=== PATIENT | female | born 1950 | race Caucasian/White ===

== ENCOUNTER 2024-02-24 03:34 | Observation (INO) | payer MEDICARE, SELFPAY ==
[2024-02-24] VITALS (10 sets, daily range): BP systolic 150–162; BP diastolic 56–78; PULSE 52–66; RESP 16–18; TEMP 36–36.7; O2SAT 93–96; BMI 56.8
--- NOTE | ~2024-02-24 | XR_ITS ---
Clinical Indication: Weakness, back pain PA and lateral views of the chest: Comparison: None Findings: The lungs are clear, without evidence of focal consolidation or pleural effusion. Cardiome diastinal silhouette is within normal limits. Bones and soft tissues are unremarkable. Impression: Normal chest. Reviewed, dictated and finalized at [facility]. Impression: Normal chest.
--- NOTE | ~2024-02-24 | CT_ITS ---
CT of the Abdomen and Pelvis: Indication: Abdominal pain Technique: 2.5 mm axial scans were obtained through the abdomen and pelvis following intravenous adm inistration of 100 cc of Omnipaque 350. Dose reduction technique was used on this scan by utilizing a utomated exposure control and iterative reconstruction technique. The dose-length product (DLP) was 3 673.52 mGy-cm. Findings: Scans through the lung bases are unremarkable. The liver, pancreas, and adrenal glands are within normal limits. 2.2 cm calcified gallstone present. Spleen is enlarged, measuring 16.2 cm in length. There is a 1 cm ovoid stone in the left renal pelvi s. There are additional smaller bilateral nonobstructing renal stones. No hydronephrosis. No evidence of aortic aneurysm. No lymphadenopathy. No bowel obstruction or bowel wall thickening. There is no evidence to suggest acute appendicitis. Images through the pelvis were performed. Urinary bladder unremarkable. No pelvic mass seen. No ascit es. L2 compression fracture, likely acute. Impression: L2 compression fracture, likely acute. Correlate with clinical history/symptomatology. MR could be co nsidered to further evaluate for acute marrow edema, as indicated. Cholelithiasis. Bilateral nonobstructing renal stones, likely 1 cm stone at the left renal pelvis. No hydronephrosis on either side. Splenomegaly. Reviewed, dictated and finalized at [facility]. Impression: L2 compression fracture, likely acute. Correlate with clinical history/symptoma tology. MR could be considered to further evaluate for acute marrow edema, as i ndicated. Cholelithiasis. Bilateral nonobstructing renal stones, likely 1 cm stone at the left renal pelv is. No hydronephrosis on either side. Splenomegaly.
--- NOTE | 2024-02-24 03:46 | ECG_ITS ---
Test Date: 2024-02-24 03:47:48 Measurements Intervals [place] Rate: 60 P: 58 [place]: 173 QRS: 25 QRSD: 100 T: 32 QT: 417 QTc: 419 Interpretive Statements SINUS RHYTHM BASELINE ARTIFACT WHICH LIMITS INTERPRETATION No previous ECG available for comparison Electronically Signed On 02-24-2024 17:10:12 CDT by Letty Maguire M.D.
[2024-02-24 04:18] LABS: Basophils Absolute Auto 0.1 K/mm3 (0.0-0.1); Eosinophils Absolute Auto 0.3 K/mm3 (0-0.3); Eosinophils Percent Auto 3.9 % (0-4.4); Hematocrit 41.3 % (37.0-47.0); Hemoglobin 13.1 g/dL (12.0-15.0); Immature Granulocyte Absolute 0.07 K/mm3 (0.00-0.031); Immature Granulocyte Percent A 0.9 % (0-0.5); Lymphocytes Absolute Auto 1.08 K/mm3 (0.9-3.2); Lymphocytes Percent Auto 13.7 % (18.3-44.2); Mean Corpuscular HGB Conc 31.7 g/dl (32-36); Mean Corpuscular Hemoglobin 28.2 pg (26-34); Mean Corpuscular Volume 88.8 fl (80-100); Mean Platelet Volume 9.1 fl (7.4-10.4); Monocytes Absolute Auto 0.6 K/mm3 (0.1-0.6); Monocytes Percent Auto 7.4 % (2.6-8.5); Neutrophils Absolute Auto 5.8 K/mm3 (1.3-6.7); Neutrophils Percent Auto 73.1 % (45.5-73.1); Platelet Count Result 250 k/mm3 (150-375); Red Blood Count 4.65 M/mm3 (4.2-5.4); Red Cell Distribution Width 14.7 % (11.5-14.5); White Blood Count 7.9 K/mm3 (4.5-10.0)
--- NOTE | 2024-02-24 04:18 | ED.GENADULT ---
HPI - General Adult General Chief complaint: Weakness Stated complaint: GEN WEAKNESS, BACK PAIN Time Seen by Provider: 02/24/24 03:56 History of Present Illness HPI narrative: Patient is a 71-year-old female who presents emergency department with chief complaint of back pain and generalized weakness. Patient reports that she has not really left her house in some time and reports that she has noticed that she has been having low back pain after she was straining to go to the bathroom and felt a pulling sensation in her back the patient reports that she has not really been able walk for the last week due to low back pain the patient denies trauma reports that she has had no falls of a reports that now she is unable to get up out of bed the patient does report that she has had multiple ulcerations that have developed in her perineal area patient denies fever Related Data Home Medications Medication Instructions Recorded Confirmed cholecalciferol (vitamin D3) 25 25 mcg PO DAILY 12/25/22 12/25/22 mcg (1,000 unit) capsule multivitamin-ferrous 1 tablet PO DAILY 12/25/22 12/25/22 fumarate-folic acid 18 mg-400 mcg tablet (Centrum Women) soy isoflavone-black cohosh cap PO 12/25/22 12/25/22 root-magnolia bark 155 mg capsule (Estroven) Allergies Allergy/AdvReac Type Severity Reaction Status Date / Time ibuprofen Allergy Unknown Nausea Verified 02/24/24 03:42 lisinopril Allergy Unknown azotemia Verified 02/24/24 03:42 naproxen Allergy Unknown Skin Verified 02/24/24 03:42 Reaction Sulfa (Sulfonamide Allergy Unknown Nausea Verified 02/24/24 03:42 Antibiotics) Review of Systems Review of Systems: A 10 system review of systems was completed on the patient and is negative except for what is stated in the HPI. Nursing and ancillary documentation was reviewed. [facility]LY [facility] Family History Family History Grandparent Diabetes mellitus Hypertension Family history of cardiovascular disease Carcinoma of colon Mother Depression Hypertension Family history of allergic disorder Family history of elevated blood lipids Cerebrovascular accident Father Family history of glaucoma Cerebrovascular accident Sibling Family history of elevated blood lipids Social History Social History Smoking status: Never smoker Alcohol intake: current Exam Narrative: GENERAL: Well-appearing, morbidly obese, and in no acute distress. HEAD: Normocephalic, atraumatic. EYES: PERRLA and EOMI. ENT: Nares clear, no rhinorrhea or epistaxis. Mucous membranes moist. NECK: Supple. CHEST: Clear to auscultation. No respiratory distress. HEART: Regular rate and rhythm. No murmur heard. Normal peripheral pulses. ABDOMEN: Soft, nontender, nondistended, normal active bowel sounds. Back: Tenderness to palpation lumbar spine EXTREMITIES: Normal range of motion. No edema. SKIN: Warm, dry, no rash. Multiple ulcerations in the perineal and gluteal region all superficial NEURO: No focal deficits. Alert and oriented x3. PSYCH: Normal mood and affect. Course Vital Signs Vital signs: Vital Signs Temperature 36.7 C 02/24/24 03:36 Pulse Rate 63 02/24/24 03:36 Respiratory Rate 17 02/24/24 03:36 Blood Pressure 159/78 H 02/24/24 03:36 Pulse Oximetry 94 02/24/24 03:36 Oxygen Delivery Room Air 02/24/24 03:36 Temperature 36.7 C 02/24/24 03:36 Pulse Rate 60 02/24/24 03:42 Respiratory Rate 17 02/24/24 03:36 Blood Pressure 159/78 H 02/24/24 03:36 Pulse Oximetry 94 02/24/24 03:36 Oxygen Delivery Room Air 02/24/24 03:36 Medical Decision Making MDM Narrative Medical decision making narrative: Differential diagnosis includes lumbar fracture, abscess, UTI, deconditioning CT scan of the abdomen pelvis showed a L2 compression fracture, likely acute. Correlate with c
[2024-02-24 04:28] LABS: INR 1.2; Prothrombin Time 15.2 Seconds (11.1-14.7)
[2024-02-24 04:29] LABS: Partial Thromboplastin Time 37.9 Seconds (22.3-36.8)
[2024-02-24 04:34] LABS: Add Urine Microscopic? YES; Appearance Urine Cloudy (Clear); Bacteria Urine 4+ /hpf; Bilirubin Urine Negative (Negative); Blood Urine 2+ (Negative); Color Urine Yellow (Yellow); Glucose Urine UA Negative (Negative); Ketones Urine Trace mg/dL (Negative); Leukocyte Esterase Ur 1+ LEU/UL (Negative); Need Manual Microscopic Reviewed; Nitrate Urine Positive (Negative); Protein Urine Trace mg/dL (Negative); RBC Urine 21-50 /hpf (0-2); Specific Grav Ur 1.021 (1.001-1.035); Squamous Epithelial Cell Urine Few /hpf (Few); WBC Urine 51-100 /hpf (0-3); pH Urine 5.5 (5.0-9.0)
[2024-02-24 04:37] LABS: Lactic Acid Reflex 0.9 mmol/L (0.7-2.0)
[2024-02-24 04:41] LABS: Alanine Aminotransferase 13 U/L (6-35); Albumin Level 3.6 g/dL (3.5-5.1); Alkaline Phosphatase 67 U/L (38-126); Anion Gap 10 mmol/L (4-12); Aspartate Amino Transferase 26 U/L (14-36); Bilirubin,Total 0.7 mg/dL (0.2-1.3); Blood Urea Nitrogen 9 mg/dL (7-17); Calcium 8.6 mg/dL (8.4-10.2); Carbon Dioxide 29 mmol/L (22-30); Chloride 100 mmol/L (98-107); Estimated CRCL calculation 106 ml/min; Estimated Glomerular Filt Rate > 60; Glucose 160 mg/dL (65-110); Magnesium 1.7 mg/dL (1.6-2.3); Potassium 3.4 mmol/L (3.4-5.0); Sodium 139 mmol/L (137-145)
[2024-02-24 04:49] LABS: Troponin I < 0.012 ng/mL (0.000-0.034)
[2024-02-24 04:55] LABS: Procalcitonin 0.1 ng/mL
[2024-02-24] MEDS: HYDROcodone/acetaminophen (*CRX) 10-325 MG TABLET 1 TAB PO (07:42)
--- NOTE | 2024-02-24 10:12 | WPDNEUROSGCN ---
Assessment and Plan Assessment and plan (1) Lumbar compression fracture: Code(s): S32.000A - Wedge compression fracture of unspecified lumbar vertebra, initial encounter for closed fracture Status: Acute Plan -I have called [facility] to fit her for a brace. She does not need to wear it while in bed. She should wear this when out of bed and mobilizing -Pain control -PT/OT evaluations Consult date: 02/24/24 HPI: Mandy Rodriguez is a 73 year old female with morbid obesity who presented to the hospital for intractable back pain. She felt this pain about 2 weeks ago when straining to have a bowel movement. She denies radicular pain or paresthesias in the legs. She is essentially bed bound at home and can only mobilize to the bathroom with difficulty. She lives alone, but her daughter and nephew help bring her food on a daily basis. She has not left her bedroom in 5 years due to inability to go up/down steps and has not been to the doctor in at least that amount of time. Review of Systems Review of Systems: All systems reviewed & are unremarkable except as noted in HPI and below PMFSH Family History Family History Grandparent Diabetes mellitus Hypertension Family history of cardiovascular disease Carcinoma of colon Mother Depression Hypertension Family history of allergic disorder Family history of elevated blood lipids Cerebrovascular accident Father Family history of glaucoma Cerebrovascular accident Sibling Family history of elevated blood lipids Social History Social History Smoking status: Never smoker Alcohol intake: current Meds Home Medications and Allergies Home Medications Medication Instructions Recorded Confirmed Type cholecalciferol (vitamin D3) 25 25 mcg PO DAILY 12/25/22 12/25/22 History mcg (1,000 unit) capsule multivitamin-ferrous 1 tablet PO DAILY 12/25/22 12/25/22 History fumarate-folic acid 18 mg-400 mcg tablet (Centrum Women) soy isoflavone-black cohosh cap PO 12/25/22 12/25/22 History root-magnolia bark 155 mg capsule (Estroven) levothyroxine 175 mcg tablet 175 mcg PO DAILY #90 tabs 07/22/23 Rx propranolol 80 mg tablet See Rx Instructions PO .COMPLEX 07/22/23 Rx #135 tabs Allergies Allergy/AdvReac Type Severity Reaction Status Date / Time ibuprofen Allergy Unknown Nausea Verified 02/24/24 03:42 lisinopril Allergy Unknown azotemia Verified 02/24/24 03:42 naproxen Allergy Unknown Skin Verified 02/24/24 03:42 Reaction Sulfa (Sulfonamide Allergy Unknown Nausea Verified 02/24/24 03:42 Antibiotics) Vital Signs Vital Signs - 24 hr 02/24/24 03:36 02/24/24 03:42 02/24/24 06:09 Temperature 98.0 F Pulse Rate 63 60 60 Respiratory Rate 17 17 Blood Pressure 159/78 H 159/64 H Pulse Oximetry 94 94 Oxygen Delivery Room Air 02/24/24 07:23 02/24/24 08:20 02/24/24 08:54 Temperature 98.1 F Pulse Rate 58 L 55 L 52 L Respiratory Rate 16 16 18 Blood Pressure 159/64 H 162/60 H 152/62 H Pulse Oximetry 96 95 96 Oxygen Delivery Exam Narrative: AOx4 Good strength in upper extremities full strength in distal legs, able to slide legs up but not able to lift off bed. This seems to be her baseline Sensation intact to light touch Results Labs 02/24/24 04:11 02/24/24 04:11 Labs: Short CBC 02/24/24 Range/Units 04:11 WBC 7.9 (4.5-10.0) K/mm3 Hgb 13.1 (12.0-15.0) g/dL Hct 41.3 (37.0-47.0) % Plt Count 250 (150-375) k/mm3 BMP 02/24/24 04:11 Sodium 139 Potassium 3.4 Chloride 100 Carbon Dioxide 29 BUN 9 Creatinine 0.60 L Glucose 160 H Calcium 8.6 Cardiac Enzymes 02/24/24 Range/Units 04:11 Troponin I < 0.012 (0.000-0.034) ng/mL Liver Function 02/24/24 Range/Units 04:11 Total Bilirubin
--- NOTE | 2024-02-24 10:38 | ADMGEN ---
This patient, Mandy Rodriguez, was admitted to [facility] Surg Room 313-01. Patient/family oriented to hospital policies and general routines including ID bracelet, bed and alarms, visiting hours, pain management, procedures, bathroom and other care routines, personal items, smoking policy, room service/diet, and visiting hours. Information on how to activate the Rapid Response Team has been discussed. Patient/Family are encouraged to report perceived risks to care and to ask questions if they do not understand what they are told or what they should do.
[2024-02-24] MEDS: HYDROcodone/acetaminophen (*CRX) 5-325 MG TABLET 1 TAB PO ×2 (13:44→20:38)
[2024-02-24] MEDS: TOLNAFTATE 1% POWDER 45 GM BTL 1 APPLIC TOPICAL ×2 (13:44→20:46)
--- NOTE | 2024-02-24 16:31 | PM.IMHP ---
H&P: HPI History of Present Illness Date/Time: 02/24/24 16:31 Chief Complaint: Back pain and immobility Narrative: 71-year-old female who presents emergency department with chief complaint of back pain and generalized weakness. Pt states about 2.5 weeks ago she was straining on the stool and causes strain in her back. Pt has been lying in bed because of pain she states 10/10 pain if she sits forward. CT abdo/pelvis here shows L2 compression fracture, likely acute. Correlate with clinical history/symptomatology. MR could be considered to further evaluate for acute marrow edema, as indicated. Cholelithiasis. Bilateral nonobstructing renal stones, likely 1 cm stone at the left renal pelvis. No hydronephrosis on either side. Splenomegaly. Pt denies any bladder or bowel problems Pt seen by neurosurgery Pt to try back brace and mobilize with PT Likely pt will need rehab placement Review of Systems Review of Systems: Severe back pain PMFSH Family History Family History Grandparent Diabetes mellitus Hypertension Family history of cardiovascular disease Carcinoma of colon Mother Depression Hypertension Family history of allergic disorder Family history of elevated blood lipids Cerebrovascular accident Father Family history of glaucoma Cerebrovascular accident Sibling Family history of elevated blood lipids Social History Social History Smoking status: Never smoker Alcohol intake: never Substance use: never Do You Feel Safe in your Home?: No Lack of Transportation: No Lack of Food: Never True Current Housing: I Have Housing Concerned About Future Housing: No Difficulty Paying Gas/Electric Bills: No Difficulty Paying for Meds: No Currently Unemployed: No Education: Bachelor's Degree Difficulty w/ Childcare or Family Care: No Spiritual care concerns: No Meds Home Medications and Allergies Home Medications Medication Instructions Recorded Confirmed Type multivitamin-ferrous 1 tablet PO DAILY 12/25/22 02/24/24 History fumarate-folic acid 18 mg-400 mcg tablet (Centrum Women) soy isoflavone-black cohosh 1 cap PO DAILY 12/25/22 02/24/24 History root-magnolia bark 155 mg capsule (Estroven) levothyroxine 175 mcg tablet 175 mcg PO DAILY #90 tabs 07/22/23 02/24/24 Rx propranolol 80 mg tablet See Rx Instructions PO .COMPLEX 07/22/23 02/24/24 Rx #135 tabs Allergies Allergy/AdvReac Type Severity Reaction Status Date / Time ibuprofen Allergy Unknown Nausea Verified 02/24/24 03:42 lisinopril Allergy Unknown azotemia Verified 02/24/24 03:42 naproxen Allergy Unknown Skin Verified 02/24/24 03:42 Reaction Sulfa (Sulfonamide Allergy Unknown Nausea Verified 02/24/24 03:42 Antibiotics) Vital Signs Vital Signs - 24 hr 02/24/24 03:36 02/24/24 03:42 02/24/24 06:09 Temperature 36.7 C Pulse Rate 63 60 60 Respiratory Rate 17 17 Blood Pressure 159/78 H 159/64 H Pulse Oximetry 94 94 Oxygen Delivery Room Air 02/24/24 07:23 02/24/24 08:20 02/24/24 08:54 Temperature 36.7 C Pulse Rate 58 L 55 L 52 L Respiratory Rate 16 16 18 Blood Pressure 159/64 H 162/60 H 152/62 H Pulse Oximetry 96 95 96 Oxygen Delivery 02/24/24 11:09 02/24/24 08:40 02/24/24 14:00 Temperature 36.7 C Pulse Rate 60 Respiratory Rate 18 Blood Pressure 150/60 H Pulse Oximetry 94 95 Oxygen Delivery Room Air Room Air Exam Narrative: GENERAL: Well-appearing, morbidly obese, in bed HEAD: Normocephalic, atraumatic. EYES: PERRLA and EOMI. ENT: Nares clear, no rhinorrhea or epistaxis. Mucous membranes moist. NECK: Supple. CHEST: Clear to auscultation. No respiratory distress. HEART: Regular rate and rhythm. No murmur heard. Normal peripheral pulses. ABDOMEN: Soft, nontender, nondistended, normal active bowel sounds.
[2024-02-24] MEDS: PROPRANOLOL HCL 10 MG TABLET PO (20:38)
[2024-02-24] MEDS: HYDROmorphone HCL INJ (*CRX) 1 MG/ML SYR 0.5 MG IV PUSH (23:31)
[2024-02-25] MEDS: HYDROcodone/acetaminophen (*CRX) 5-325 MG TABLET 1 TAB PO ×2 (00:22→13:24)
[2024-02-25 05:55] VITALS: BP 154/65; PULSE 61; RESP 20; TEMP 36.4; O2SAT 94
[2024-02-25] MEDS: LEVOTHYROXINE SODIUM 125 MCG TABLET PO (06:33)
[2024-02-25] MEDS: LEVOTHYROXINE SODIUM 50 MCG TABLET PO (06:33)
[2024-02-25 09:46] VITALS: BP 151/65; PULSE 60; O2SAT 94
[2024-02-25 09:47] VITALS: PULSE 60
[2024-02-25] MEDS: ENOXAPARIN 40 MG/0.4 ML SYRINGE SUB-Q (09:47)
[2024-02-25] MEDS: PROPRANOLOL HCL 10 MG TABLET PO ×2 (09:47→21:03)
[2024-02-25] MEDS: TOLNAFTATE 1% POWDER 45 GM BTL 1 APPLIC TOPICAL ×2 (09:48→21:04)
--- NOTE | 2024-02-25 12:53 | PM.IMPN ---
Progress Note: A&P Assessment and Plan (1) Lumbar compression fracture: Code(s): S32.000A - Wedge compression fracture of unspecified lumbar vertebra, initial encounter for closed fracture Status: Acute Assessment and Plan: CT shows compression fracture of lumbar 2 Pain control neurosurgery consult PT/ OT with brace on Pt will likely need a back brace (2) Vitamin D deficiency, unspecified: Code(s): E55.9 - Vitamin D deficiency, unspecified Status: Acute Assessment and Plan: order vit d level (3) Essential hypertension: Code(s): I10 - Essential (primary) hypertension Status: Acute Assessment and Plan: restart BP meds Bp is 150/60s (4) Primary hyperparathyroidism: Code(s): E21.0 - Primary hyperparathyroidism Status: Acute Assessment and Plan: order CMP and calcium levels (5) Prediabetes: Code(s): R73.03 - Prediabetes Status: Acute Assessment and Plan: Order HBaic pt sugars in the 200 (6) Hypothyroid: Code(s): E03.9 - Hypothyroidism, unspecified Status: Acute Assessment and Plan: restart levothyroxine (7) Acute UTI: Code(s): N39.0 - Urinary tract infection, site not specified Status: Acute Assessment and Plan: PT started on iv rocephin follow UC Plan lovenox ordered FUll code Subjective Date/time seen: 02/25/24 12:53 Interval history: 71-year-old female who presents emergency department with chief complaint of back pain and generalized weakness. Pt states about 2.5 weeks ago she was straining on the stool and causes strain in her back. Pt has been lying in bed because of pain she states 10/10 pain if she sits forward. CT abdo/pelvis here shows -L2 compression fracture, likely acute. Pt seen by neurosurgery here ok to mobilize with back brace and start PT/ OT. Awaiting rehab placement following therapy here Review of Systems Review of Systems: Back pain Exam Narrative: GENERAL: Well-appearing, morbidly obese, in bed HEAD: Normocephalic, atraumatic. EYES: PERRLA and EOMI. ENT: Nares clear, no rhinorrhea or epistaxis. Mucous membranes moist. NECK: Supple. CHEST: Clear to auscultation. No respiratory distress. HEART: Regular rate and rhythm. No murmur heard. Normal peripheral pulses. ABDOMEN: Soft, nontender, nondistended, normal active bowel sounds. Back: Tenderness to palpation lumbar spine EXTREMITIES: Normal range of motion. No edema. SKIN: Warm, dry, no rash. Multiple ulcerations, pressure sores in gluteal region NEURO: No focal deficits. Alert and oriented x3. PSYCH: Normal mood and affect. Objective Data Vital Signs Vital Signs: Vital Signs - 24 hr 02/24/24 14:00 02/24/24 20:38 02/24/24 21:20 Temperature 36.7 C 36.0 C L Pulse Rate 60 65 66 Respiratory Rate 18 18 Blood Pressure 150/60 H 152/56 H Pulse Oximetry 95 93 Oxygen Delivery 02/24/24 20:00 02/25/24 05:55 02/25/24 09:46 Temperature 36.4 C L Pulse Rate 61 60 Respiratory Rate 20 Blood Pressure 154/65 H 151/65 H Pulse Oximetry 94 94 Oxygen Delivery Room Air 02/25/24 09:47 02/25/24 10:32 02/25/24 10:55 Temperature Pulse Rate 60 Respiratory Rate Blood Pressure Pulse Oximetry Oxygen Delivery Room Air Room Air 02/25/24 09:40 Temperature Pulse Rate Respiratory Rate Blood Pressure Pulse Oximetry Oxygen Delivery Room Air Intake/Output Intake/Output: Intake & Output 02/22/24 02/23/24 02/24/24 02/25/24 23:59 23:59 23:59 23:59 Intake Total 1560 490 Output Total 700 2000 Balance 860 -1510 Meds/Results Medications: Active Medications Generic Name Dose Route Start Last Admin Trade Name Freq PRN Reason Stop Dose Admin Hydrocodone Bitart/Acetaminophen 1 tab 02/24/24 06:40 02/25/24 00:22 Hydrocodone/Acetaminophen (*Crx) 5-325 Mg Tablet PO 1 tab Q4H PRN Administration Pain R
[2024-02-25 14:00] VITALS: BP 146/58; PULSE 65; RESP 20; TEMP 36; O2SAT 96
[2024-02-25 20:00] VITALS: PULSE 66
[2024-02-25 22:00] VITALS: BP 127/52; PULSE 70; RESP 20; TEMP 36.4; O2SAT 92
[2024-02-26] MEDS: HYDROcodone/acetaminophen (*CRX) 5-325 MG TABLET 1 TAB PO ×4 (01:24→21:43)
[2024-02-26 05:40] VITALS: BP 129/76; PULSE 63; RESP 20; TEMP 36.4; O2SAT 94
[2024-02-26] MEDS: LEVOTHYROXINE SODIUM 50 MCG TABLET PO (05:47)
[2024-02-26] MEDS: LEVOTHYROXINE SODIUM 125 MCG TABLET PO (05:47)
[2024-02-26 07:53] LABS: Anion Gap 7 mmol/L (4-12); Blood Urea Nitrogen 16 mg/dL (7-17); Calcium 8.5 mg/dL (8.4-10.2); Carbon Dioxide 35 mmol/L (22-30); Chloride 94 mmol/L (98-107); Estimated CRCL calculation 106 ml/min; Estimated Glomerular Filt Rate > 60; Glucose 103 mg/dL (65-110); Potassium 3.4 mmol/L (3.4-5.0); Sodium 136 mmol/L (137-145)
[2024-02-26 08:33] LABS: Basophils Absolute Auto 0.1 K/mm3 (0.0-0.1); Basophils Percent Auto 1.5 % (0.2-1.2); Eosinophils Absolute Auto 0.4 K/mm3 (0-0.3); Eosinophils Percent Auto 4.8 % (0-4.4); Hematocrit 39.2 % (37.0-47.0); Hemoglobin 12.1 g/dL (12.0-15.0); Immature Granulocyte Absolute 0.08 K/mm3 (0.00-0.031); Immature Granulocyte Percent A 1.1 % (0-0.5); Lymphocytes Absolute Auto 1.49 K/mm3 (0.9-3.2); Lymphocytes Percent Auto 20.1 % (18.3-44.2); Mean Corpuscular HGB Conc 30.9 g/dl (32-36); Mean Corpuscular Hemoglobin 27.7 pg (26-34); Mean Corpuscular Volume 89.7 fl (80-100); Mean Platelet Volume 9.1 fl (7.4-10.4); Monocytes Absolute Auto 0.7 K/mm3 (0.1-0.6); Monocytes Percent Auto 9.3 % (2.6-8.5); Neutrophils Absolute Auto 4.7 K/mm3 (1.3-6.7); Neutrophils Percent Auto 63.2 % (45.5-73.1); Platelet Count Result 228 k/mm3 (150-375); Red Blood Count 4.37 M/mm3 (4.2-5.4); Red Cell Distribution Width 14.6 % (11.5-14.5); White Blood Count 7.4 K/mm3 (4.5-10.0)
[2024-02-26 09:39] VITALS: PULSE 63
[2024-02-26] MEDS: PROPRANOLOL HCL 10 MG TABLET PO ×2 (09:39→21:42)
[2024-02-26] MEDS: ENOXAPARIN 40 MG/0.4 ML SYRINGE SUB-Q (09:39)
[2024-02-26] MEDS: TOLNAFTATE 1% POWDER 45 GM BTL 1 APPLIC TOPICAL ×2 (09:40→21:41)
[2024-02-26] MEDS: traMADol HCL (*CRX) 25 MG TABLET PO (09:43)
[2024-02-26 09:45] LABS: Alanine Aminotransferase 10 U/L (6-35); Albumin Level 3.2 g/dL (3.5-5.1); Alkaline Phosphatase 68 U/L (38-126); Aspartate Amino Transferase 26 U/L (14-36); Bilirubin,Total 0.5 mg/dL (0.2-1.3)
[2024-02-26] MEDS: polyethylene glycoL 3350 17 GM POWD.PACK PO (12:38)
[2024-02-26 14:00] VITALS: BP 128/65; PULSE 67; RESP 16; TEMP 36.2; O2SAT 90
--- NOTE | 2024-02-26 14:53 | PM.IMPN ---
Progress Note: A&P Assessment and Plan (1) Lumbar compression fracture: Code(s): S32.000A - Wedge compression fracture of unspecified lumbar vertebra, initial encounter for closed fracture Status: Acute Assessment and Plan: 02/26/24: CT the abdomen pelvis showing compression fracture of L2 Continue with PT and OT TLSO brace Continue pain control Case coordination working on rehab needs (2) Acute UTI: Code(s): N39.0 - Urinary tract infection, site not specified Status: Acute Assessment and Plan: 02/26/24: UA showing trace ketone, 2+ urine blood, positive nitrate, 1+ leukocyte, 21-50 urine RBC, 51-100 urine WBC, 4+ bacteria Urine culture showing E coli on final read which is pansensitive Rocephin discontinued and patient started on Keflex oral (3) Essential hypertension: Code(s): I10 - Essential (primary) hypertension Status: Chronic Assessment and Plan: 02/26/24: Blood pressure ranging 127/52 to 150/60 Continue propranolol (4) Prediabetes: Code(s): R73.03 - Prediabetes Status: Chronic Assessment and Plan: 02/26/24: Blood sugars ranging 103-160 Hgb A1C pending Will hold on medication today all hemoglobin A1c is pending (5) Hypothyroid: Code(s): E03.9 - Hypothyroidism, unspecified Status: Chronic Assessment and Plan: 02/26/24: Continue Synthroid Time Spent With Patient Time with patient: Greater than 35 minutes Subjective Date/time seen: 02/26/24 14:53 Interval history: Interval history: This is a 73-year-old female who presented to the hospital complaints of back pain. Workup in the hospital included an abdomen pelvis CT which showed an L2 compression fracture which is likely acute, bilateral nonobstructing renal stones, cholelithiasis, splenomegaly. Chest x-ray was negative. Initial labs were essentially unremarkable. Troponin was negative, procalcitonin 0.1. UA was obtained which showed trace ketone, 2+ urine blood, positive nitrate, 1+ leukocyte, 21-50 urine RBC, 51-100 urine WBC, 4+ bacteria. Urine culture was showing E coli on final read which was pansensitive. She was on Rocephin and transitioned over to Keflex. She was seen by Neurosurgery and was provided a TLSO brace. PT and OT were ordered. 02/26/24: Patient denies any fever, chills, nausea, vomiting, diarrhea, abdominal pain, chest pain, shortness a breath. She reports that her pain is well controlled. Labs and imaging reviewed. Review of Systems Review of Systems: All systems reviewed & are unremarkable except as noted in HPI and below Constitutional: Constitutional: Reports as per HPI and Reports no additional constitutional complaints Eyes: Eyes: Reports as per HPI and Reports no additional eye complaints ENT: Reports system reviewed and no additional complaints, except as documented and Reports as per HPI Cardiovascular: Cardiovascular: Reports as per HPI and Reports no additional cardiovascular complaints Respiratory: Respiratory: Reports as per HPI and Reports no additional respiratory complaints Gastrointestinal: Gastrointestinal: Reports as per HPI and Reports no additional gastrointestinal complaints Genitourinary: Genitourinary: Reports no additional female genitourinary complaints and Reports as per HPI Musculoskeletal: Musculoskeletal: Reports no additional musculoskeletal complaints and Reports as per HPI Integumentary/Breasts: Skin/Breast: Reports system reviewed and no additional complaints, except as docu and Reports as per HPI Neurologic: Reports system reviewed and no additional complaints, except as documented and Reports as per HPI Psychiatric: Psychiatric: Reports no additional psychiatric complaints and Reports as per HPI Exam Narrative: General: In no acute distress, well nourished, obese Head: atraumatic, no encephalopathy Eyes: EOMI, PERRLA, sclera clear ENT: moist mucous membranes, nasal passages arabella
[2024-02-26 20:15] LABS: Hemoglobin A1C 6.1 % (<5.7)
[2024-02-26 20:37] VITALS: BP 133/54; PULSE 70; RESP 20; TEMP 36.3; O2SAT 93
[2024-02-26 21:42] VITALS: PULSE 70
[2024-02-27] MEDS: traMADol HCL (*CRX) 25 MG TABLET PO (02:30)
[2024-02-27] MEDS: HYDROmorphone HCL INJ (*CRX) 1 MG/ML SYR 0.5 MG IV PUSH (03:41)
[2024-02-27 05:42] VITALS: BP 143/61; PULSE 58; RESP 20; TEMP 36.4; O2SAT 94
[2024-02-27 06:18] LABS: Basophils Absolute Auto 0.1 K/mm3 (0.0-0.1); Basophils Percent Auto 0.9 % (0.2-1.2); Eosinophils Absolute Auto 0.4 K/mm3 (0-0.3); Eosinophils Percent Auto 5.1 % (0-4.4); Hematocrit 41.9 % (37.0-47.0); Hemoglobin 12.9 g/dL (12.0-15.0); Immature Granulocyte Absolute 0.09 K/mm3 (0.00-0.031); Immature Granulocyte Percent A 1.1 % (0-0.5); Lymphocytes Absolute Auto 1.46 K/mm3 (0.9-3.2); Lymphocytes Percent Auto 17.2 % (18.3-44.2); Mean Corpuscular HGB Conc 30.8 g/dl (32-36); Mean Corpuscular Hemoglobin 27.7 pg (26-34); Mean Corpuscular Volume 90.1 fl (80-100); Mean Platelet Volume 9.2 fl (7.4-10.4); Monocytes Absolute Auto 0.9 K/mm3 (0.1-0.6); Neutrophils Absolute Auto 5.6 K/mm3 (1.3-6.7); Neutrophils Percent Auto 65.7 % (45.5-73.1); Platelet Count Result 225 k/mm3 (150-375); Red Blood Count 4.65 M/mm3 (4.2-5.4); Red Cell Distribution Width 14.6 % (11.5-14.5); White Blood Count 8.5 K/mm3 (4.5-10.0)
[2024-02-27 06:30] LABS: Alanine Aminotransferase 11 U/L (6-35); Albumin Level 3.5 g/dL (3.5-5.1); Alkaline Phosphatase 69 U/L (38-126); Anion Gap 8 mmol/L (4-12); Aspartate Amino Transferase 22 U/L (14-36); Bilirubin,Total 0.5 mg/dL (0.2-1.3); Blood Urea Nitrogen 22 mg/dL (7-17); Calcium 8.6 mg/dL (8.4-10.2); Carbon Dioxide 33 mmol/L (22-30); Chloride 92 mmol/L (98-107); Estimated CRCL calculation 106 ml/min; Estimated Glomerular Filt Rate > 60; Glucose 114 mg/dL (65-110); Sodium 133 mmol/L (137-145)
[2024-02-27] MEDS: LEVOTHYROXINE SODIUM 125 MCG TABLET PO (06:45)
[2024-02-27] MEDS: LEVOTHYROXINE SODIUM 50 MCG TABLET PO (06:45)
[2024-02-27 09:38] VITALS: PULSE 63
[2024-02-27] MEDS: ENOXAPARIN 40 MG/0.4 ML SYRINGE SUB-Q (09:38)
[2024-02-27] MEDS: PROPRANOLOL HCL 10 MG TABLET PO (09:38)
[2024-02-27] MEDS: BISACODYL 5 MG TABLET EC PO (09:38)
[2024-02-27] MEDS: TOLNAFTATE 1% POWDER 45 GM BTL 1 APPLIC TOPICAL ×2 (09:39→22:22)
--- NOTE | 2024-02-27 11:31 | PM.IMPN ---
Progress Note: A&P Assessment and Plan (1) Lumbar compression fracture: Code(s): S32.000A - Wedge compression fracture of unspecified lumbar vertebra, initial encounter for closed fracture Status: Acute Assessment and Plan: 02/26/24: CT the abdomen pelvis showing compression fracture of L2 Continue with PT and OT TLSO brace Continue pain control Case coordination working on rehab needs 02/27/24: Continue with PT and OT Case management following (2) Acute UTI: Code(s): N39.0 - Urinary tract infection, site not specified Status: Acute Assessment and Plan: 02/26/24: UA showing trace ketone, 2+ urine blood, positive nitrate, 1+ leukocyte, 21-50 urine RBC, 51-100 urine WBC, 4+ bacteria Urine culture showing E coli on final read which is pansensitive Rocephin discontinued and patient started on Keflex oral 02/27/24: No change to current treatment plan (3) Essential hypertension: Code(s): I10 - Essential (primary) hypertension Status: Chronic Assessment and Plan: 02/26/24: Blood pressure ranging 127/52 to 150/60 Continue propranolol 02/27/24: Will increase propranolol to 20 mg b.i.d. (4) Prediabetes: Code(s): R73.03 - Prediabetes Status: Chronic Assessment and Plan: 02/26/24: Blood sugars ranging 103-160 Hgb A1C pending Will hold on medication today all hemoglobin A1c is pending 02/27/24: Blood sugars ranging 103-114 Hgb A1C 6.1 Accu checks AC/HS Low-dose SSI ordered hypoglycemic protocol in place Diabetic diet ordered (5) Hypothyroid: Code(s): E03.9 - Hypothyroidism, unspecified Status: Chronic Assessment and Plan: 02/26/24: Continue Synthroid 02/27/24: No change to current treatment plan Time Spent With Patient Time with patient: Greater than 35 minutes Subjective Date/time seen: 02/27/24 11:31 Interval history: Interval history: This is a 73-year-old female who presented to the hospital complaints of back pain. Workup in the hospital included an abdomen pelvis CT which showed an L2 compression fracture which is likely acute, bilateral nonobstructing renal stones, cholelithiasis, splenomegaly. Chest x-ray was negative. Initial labs were essentially unremarkable. Troponin was negative, procalcitonin 0.1. UA was obtained which showed trace ketone, 2+ urine blood, positive nitrate, 1+ leukocyte, 21-50 urine RBC, 51-100 urine WBC, 4+ bacteria. Urine culture was showing E coli on final read which was pansensitive. She was on Rocephin and transitioned over to Keflex. She was seen by Neurosurgery and was provided a TLSO brace. PT and OT were ordered. 02/26/24: Patient denies any fever, chills, nausea, vomiting, diarrhea, abdominal pain, chest pain, shortness a breath. She reports that her pain is well controlled. Labs and imaging reviewed. 02/27/24: No new complaints today. She states she did have a bowel movement yesterday is feeling much better. Labs reviewed. Review of Systems Review of Systems: All systems reviewed & are unremarkable except as noted in HPI and below Constitutional: Constitutional: Reports as per HPI and Reports no additional constitutional complaints Eyes: Eyes: Reports as per HPI and Reports no additional eye complaints ENT: Reports system reviewed and no additional complaints, except as documented and Reports as per HPI Cardiovascular: Cardiovascular: Reports as per HPI and Reports no additional cardiovascular complaints Respiratory: Respiratory: Reports as per HPI and Reports no additional respiratory complaints Gastrointestinal: Gastrointestinal: Reports as per HPI and Reports no additional gastrointestinal complaints Genitourinary: Genitourinary: Reports no additional female genitourinary complaints and Reports as per HPI Musculoskeletal: Musculoskeletal: Reports no additional musculoskeletal complaints and Reports as per HPI Integumentary/Breasts: Sk
[2024-02-27 14:00] VITALS: BP 127/61; PULSE 62; RESP 20; TEMP 36.4; O2SAT 93
[2024-02-27] MEDS: CEPHALEXIN 500 MG CAPSULE PO ×2 (18:28→20:30)
[2024-02-27] MEDS: HYDROcodone/acetaminophen (*CRX) 5-325 MG TABLET 1 TAB PO (20:30)
[2024-02-27 20:43] VITALS: BP 115/52; PULSE 63; RESP 20; TEMP 36.4; O2SAT 93
[2024-02-27 20:47] LABS: Glucose Point of Care 157 mg/dl (65-105)
[2024-02-27 22:03] VITALS: BP 122/65; PULSE 70; RESP 20; TEMP 36.8; O2SAT 94
[2024-02-27 22:22] VITALS: PULSE 66
[2024-02-27] MEDS: PROPRANOLOL HCL 20 MG TABLET PO (22:22)
[2024-02-28 05:01] VITALS: BP 126/55; PULSE 57; RESP 18; TEMP 36.1; O2SAT 94
[2024-02-28] MEDS: LEVOTHYROXINE SODIUM 125 MCG TABLET PO (05:44)
[2024-02-28] MEDS: HYDROmorphone HCL INJ (*CRX) 1 MG/ML SYR 0.5 MG IV PUSH (05:44)
[2024-02-28] MEDS: LEVOTHYROXINE SODIUM 50 MCG TABLET PO (05:44)
[2024-02-28 06:12] LABS: Basophils Absolute Auto 0.1 K/mm3 (0.0-0.1); Eosinophils Absolute Auto 0.5 K/mm3 (0-0.3); Eosinophils Percent Auto 5.9 % (0-4.4); Hematocrit 41.8 % (37.0-47.0); Immature Granulocyte Absolute 0.09 K/mm3 (0.00-0.031); Immature Granulocyte Percent A 1.1 % (0-0.5); Lymphocytes Absolute Auto 1.34 K/mm3 (0.9-3.2); Lymphocytes Percent Auto 16.2 % (18.3-44.2); Mean Corpuscular HGB Conc 31.1 g/dl (32-36); Mean Corpuscular Hemoglobin 27.7 pg (26-34); Mean Corpuscular Volume 89.1 fl (80-100); Mean Platelet Volume 9.3 fl (7.4-10.4); Monocytes Absolute Auto 0.7 K/mm3 (0.1-0.6); Neutrophils Absolute Auto 5.5 K/mm3 (1.3-6.7); Neutrophils Percent Auto 66.8 % (45.5-73.1); Platelet Count Result 247 k/mm3 (150-375); Red Blood Count 4.69 M/mm3 (4.2-5.4); Red Cell Distribution Width 14.7 % (11.5-14.5); White Blood Count 8.3 K/mm3 (4.5-10.0)
[2024-02-28 06:21] LABS: Alanine Aminotransferase 14 U/L (6-35); Albumin Level 3.6 g/dL (3.5-5.1); Alkaline Phosphatase 69 U/L (38-126); Anion Gap 8 mmol/L (4-12); Aspartate Amino Transferase 27 U/L (14-36); Bilirubin,Total 0.6 mg/dL (0.2-1.3); Blood Urea Nitrogen 23 mg/dL (7-17); Carbon Dioxide 34 mmol/L (22-30); Chloride 93 mmol/L (98-107); Estimated CRCL calculation 106 ml/min; Estimated Glomerular Filt Rate > 60; Glucose 121 mg/dL (65-110); Potassium 4.2 mmol/L (3.4-5.0); Sodium 135 mmol/L (137-145)
[2024-02-28 07:39] LABS: Glucose Point of Care 130 mg/dl (65-105)
[2024-02-28 07:51] VITALS: PULSE 56
[2024-02-28] MEDS: BISACODYL 5 MG TABLET EC PO (07:51)
[2024-02-28] MEDS: ENOXAPARIN 40 MG/0.4 ML SYRINGE SUB-Q (07:51)
[2024-02-28] MEDS: PROPRANOLOL HCL 20 MG TABLET PO ×2 (07:51→21:15)
[2024-02-28] MEDS: CEPHALEXIN 500 MG CAPSULE PO ×2 (07:51→21:15)
[2024-02-28] MEDS: TOLNAFTATE 1% POWDER 45 GM BTL 1 APPLIC TOPICAL ×2 (07:52→21:15)
--- NOTE | 2024-02-28 08:15 | P.PNIM_ITS ---
Progress Note: A&P Assessment and Plan (1) Lumbar compression fracture: Code(s): S32.000A - Wedge compression fracture of unspecified lumbar vertebra, initial encounter for closed fracture Status: Acute Assessment and Plan: 02/26/24: * CT the abdomen pelvis showing compression fracture of L2 * Continue with PT and OT * TLSO brace * Continue pain control * Case coordination working on rehab needs 02/27/24: * Continue with PT and OT * Case management following * 02/27 waiting for placement- stable (2) Acute UTI: Code(s): N39.0 - Urinary tract infection, site not specified Status: Acute Assessment and Plan: 02/26/24: * UA showing trace ketone, 2+ urine blood, positive nitrate, 1+ leukocyte, 21-50 urine RBC, 51-100 urine WBC, 4+ bacteria * Urine culture showing E coli on final read which is pansensitive * Rocephin discontinued and patient started on Keflex oral 02/27/24: * No change to current treatment plan- keflex po (3) Essential hypertension: Code(s): I10 - Essential (primary) hypertension Status: Chronic Assessment and Plan: 02/26/24: * Blood pressure ranging 127/52 to 150/60 * Continue propranolol 02/27/24: * Will increase propranolol to 20 mg b.i.d. * 02/27- reviewed- stable (4) Prediabetes: Code(s): R73.03 - Prediabetes Status: Chronic Assessment and Plan: 02/26/24: * Blood sugars ranging 103-160 * Hgb A1C pending * Will hold on medication today all hemoglobin A1c is pending 02/27/24: * Blood sugars ranging 103-114 * Hgb A1C 6.1 * Accu checks AC/HS * Low-dose SSI ordered * hypoglycemic protocol in place * Diabetic diet ordered (5) Hypothyroid: Code(s): E03.9 - Hypothyroidism, unspecified Status: Chronic Assessment and Plan: 02/26/24: * Continue Synthroid 02/27/24: * No change to current treatment plan Time Spent With Patient Time with patient: Greater than 35 minutes Subjective Date/time seen: 02/28/24 08:15 Interval history: Interval history: This is a 73-year-old female who presented to the hospital complaints of back pain. Workup in the hospital included an abdomen pelvis CT which showed an L2 compression fracture which is likely acute, bilateral nonobstructing renal stones, cholelithiasis, splenomegaly. Chest x-ray was negative. Initial labs were essentially unremarkable. Troponin was negative, procalcitonin 0.1. UA was obtained which showed trace ketone, 2+ urine blood, positive nitrate, 1+ leukocyte, 21-50 urine RBC, 51-100 urine WBC, 4+ bacteria. Urine culture was showing E coli on final read which was pansensitive. She was on Rocephin and transitioned over to Keflex. She was seen by Neurosurgery and was provided a TLSO brace. PT and OT were ordered. 02/26/24: Patient denies any fever, chills, nausea, vomiting, diarrhea, abdominal pain, chest pain, shortness a breath. She reports that her pain is well controlled. Labs and imaging reviewed. 02/27/24: No new complaints today. She states she did have a bowel movement yesterday is feeling much better. Labs reviewed. 02/27-pt is seen and examined. Doing well, reports no complains today- waiting prior auth for placement to [facility] Review of Systems Review of Systems: All systems reviewed & are unremarkable except as noted in HPI and below Constitutional: Constitutional: Reports as per HPI and Reports no additional constitutional complaints Eyes: Eyes: Reports as per
--- NOTE | 2024-02-28 08:15 | PM.IMPN ---
Progress Note: A&P Assessment and Plan (1) Lumbar compression fracture: Code(s): S32.000A - Wedge compression fracture of unspecified lumbar vertebra, initial encounter for closed fracture Status: Acute Assessment and Plan: 02/26/24: CT the abdomen pelvis showing compression fracture of L2 Continue with PT and OT TLSO brace Continue pain control Case coordination working on rehab needs 02/27/24: Continue with PT and OT Case management following 02/27 waiting for placement- stable (2) Acute UTI: Code(s): N39.0 - Urinary tract infection, site not specified Status: Acute Assessment and Plan: 02/26/24: UA showing trace ketone, 2+ urine blood, positive nitrate, 1+ leukocyte, 21-50 urine RBC, 51-100 urine WBC, 4+ bacteria Urine culture showing E coli on final read which is pansensitive Rocephin discontinued and patient started on Keflex oral 02/27/24: No change to current treatment plan- keflex po (3) Essential hypertension: Code(s): I10 - Essential (primary) hypertension Status: Chronic Assessment and Plan: 02/26/24: Blood pressure ranging 127/52 to 150/60 Continue propranolol 02/27/24: Will increase propranolol to 20 mg b.i.d. 02/27- reviewed- stable (4) Prediabetes: Code(s): R73.03 - Prediabetes Status: Chronic Assessment and Plan: 02/26/24: Blood sugars ranging 103-160 Hgb A1C pending Will hold on medication today all hemoglobin A1c is pending 02/27/24: Blood sugars ranging 103-114 Hgb A1C 6.1 Accu checks AC/HS Low-dose SSI ordered hypoglycemic protocol in place Diabetic diet ordered (5) Hypothyroid: Code(s): E03.9 - Hypothyroidism, unspecified Status: Chronic Assessment and Plan: 02/26/24: Continue Synthroid 02/27/24: No change to current treatment plan Time Spent With Patient Time with patient: Greater than 35 minutes Subjective Date/time seen: 02/28/24 08:15 Interval history: Interval history: This is a 73-year-old female who presented to the hospital complaints of back pain. Workup in the hospital included an abdomen pelvis CT which showed an L2 compression fracture which is likely acute, bilateral nonobstructing renal stones, cholelithiasis, splenomegaly. Chest x-ray was negative. Initial labs were essentially unremarkable. Troponin was negative, procalcitonin 0.1. UA was obtained which showed trace ketone, 2+ urine blood, positive nitrate, 1+ leukocyte, 21-50 urine RBC, 51-100 urine WBC, 4+ bacteria. Urine culture was showing E coli on final read which was pansensitive. She was on Rocephin and transitioned over to Keflex. She was seen by Neurosurgery and was provided a TLSO brace. PT and OT were ordered. 02/26/24: Patient denies any fever, chills, nausea, vomiting, diarrhea, abdominal pain, chest pain, shortness a breath. She reports that her pain is well controlled. Labs and imaging reviewed. 02/27/24: No new complaints today. She states she did have a bowel movement yesterday is feeling much better. Labs reviewed. 02/27-pt is seen and examined. Doing well, reports no complains today- waiting prior auth for placement to [facility] Review of Systems Review of Systems: All systems reviewed & are unremarkable except as noted in HPI and below Constitutional: Constitutional: Reports as per HPI and Reports no additional constitutional complaints Eyes: Eyes: Reports as per HPI and Reports no additional eye complaints ENT: Reports system reviewed and no additional complaints, except as documented and Reports as per HPI Cardiovascular: Cardiovascular: Reports as per HPI and Reports no additional cardiovascular complaints Respiratory: Respiratory: Reports as per HPI and Reports no additional respiratory complaints Gastrointestinal: Gastrointestinal: Reports as per HPI and Reports no additional gastrointestinal complaints Genitourinary: Genitourinary: Reports no a
[2024-02-28 11:57] LABS: Glucose Point of Care 135 mg/dl (65-105)
[2024-02-28 14:00] VITALS: BP 123/62; PULSE 59; RESP 20; TEMP 36.1; O2SAT 92
[2024-02-28] MEDS: HYDROcodone/acetaminophen (*CRX) 5-325 MG TABLET 1 TAB PO (15:46)
[2024-02-28 16:52] LABS: Glucose Point of Care 127 mg/dl (65-105)
[2024-02-28 21:11] LABS: Glucose Point of Care 165 mg/dl (65-105)
[2024-02-28 21:15] VITALS: PULSE 68
[2024-02-28 22:00] VITALS: BP 136/59; PULSE 68; RESP 20; TEMP 36.4; O2SAT 93
[2024-02-29] MEDS: LEVOTHYROXINE SODIUM 125 MCG TABLET PO (05:33)
[2024-02-29] MEDS: LEVOTHYROXINE SODIUM 50 MCG TABLET PO (05:33)
[2024-02-29 05:36] VITALS: BP 134/54; PULSE 62; RESP 20; TEMP 36.7; O2SAT 95
[2024-02-29] MEDS: HYDROcodone/acetaminophen (*CRX) 5-325 MG TABLET 1 TAB PO ×2 (05:36→13:52)
[2024-02-29 06:30] LABS: Basophils Absolute Auto 0.1 K/mm3 (0.0-0.1); Eosinophils Absolute Auto 0.5 K/mm3 (0-0.3); Eosinophils Percent Auto 5.9 % (0-4.4); Hematocrit 43.9 % (37.0-47.0); Hemoglobin 13.5 g/dL (12.0-15.0); Immature Granulocyte Absolute 0.12 K/mm3 (0.00-0.031); Immature Granulocyte Percent A 1.4 % (0-0.5); Lymphocytes Absolute Auto 1.32 K/mm3 (0.9-3.2); Lymphocytes Percent Auto 15.2 % (18.3-44.2); Mean Corpuscular HGB Conc 30.8 g/dl (32-36); Mean Corpuscular Hemoglobin 27.5 pg (26-34); Mean Corpuscular Volume 89.4 fl (80-100); Mean Platelet Volume 9.5 fl (7.4-10.4); Monocytes Absolute Auto 0.9 K/mm3 (0.1-0.6); Monocytes Percent Auto 10.1 % (2.6-8.5); Neutrophils Absolute Auto 5.8 K/mm3 (1.3-6.7); Neutrophils Percent Auto 66.4 % (45.5-73.1); Platelet Count Result 262 k/mm3 (150-375); Red Blood Count 4.91 M/mm3 (4.2-5.4); Red Cell Distribution Width 14.7 % (11.5-14.5); White Blood Count 8.7 K/mm3 (4.5-10.0)
[2024-02-29 06:41] LABS: Alanine Aminotransferase 18 U/L (6-35); Albumin Level 3.7 g/dL (3.5-5.1); Alkaline Phosphatase 85 U/L (38-126); Anion Gap 6 mmol/L (4-12); Aspartate Amino Transferase 34 U/L (14-36); Bilirubin,Total 0.5 mg/dL (0.2-1.3); Blood Urea Nitrogen 24 mg/dL (7-17); Calcium 9.1 mg/dL (8.4-10.2); Carbon Dioxide 36 mmol/L (22-30); Chloride 94 mmol/L (98-107); Estimated CRCL calculation 106 ml/min; Estimated Glomerular Filt Rate > 60; Glucose 127 mg/dL (65-110); Potassium 4.1 mmol/L (3.4-5.0); Sodium 136 mmol/L (137-145)
[2024-02-29 07:46] LABS: Glucose Point of Care 133 mg/dl (65-105)
[2024-02-29] MEDS: BISACODYL 5 MG TABLET EC PO (08:25)
[2024-02-29] MEDS: ENOXAPARIN 40 MG/0.4 ML SYRINGE SUB-Q (08:25)
[2024-02-29] MEDS: CEPHALEXIN 500 MG CAPSULE PO (08:25)
[2024-02-29 08:26] VITALS: PULSE 76
[2024-02-29] MEDS: TOLNAFTATE 1% POWDER 45 GM BTL 1 APPLIC TOPICAL (08:26)
[2024-02-29] MEDS: PROPRANOLOL HCL 20 MG TABLET PO (08:26)
--- NOTE | 2024-02-29 11:40 | PCNFU ---
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 Pt current nutrition is Diabetic, Ensure Enlive BID, CEFERINO BID. Nutrition recommendation: continue with current plan of care. Last recorded weight is 150.2 kg. Bowel Motility:+BM 02/26 Labs Reviewed:NA:136, BUN:24, Cr:0.6, Glu:127, A1C:6.1 Meds Noted:lovenox, insulin Skin: Stage III to both thighs, buttocks Additional Notes: Pt diet changed to diabetic, intake 50-100% plus supplements to support wound healing. Intake good. Agree with diet orders. Monitoring labs, weights, intakes, supplement tolerance, wound condition, plan of care Follow up in 5 days
[2024-02-29 11:54] LABS: Glucose Point of Care 163 mg/dl (65-105)
--- NOTE | 2024-02-29 13:02 | P.DS_ITS ---
DS: Admitting Diagnosis Discharge Date 02/29/24 Admitting Diagnosis 1) Lumbar Compression Fracture 2) UTI 3) HTN 4) Pre-Diabetes 5) Hypothyroidism DS: Discharge Diagnosis Discharge Diagnosis (1) Lumbar compression fracture: Code(s): S32.000A - Wedge compression fracture of unspecified lumbar vertebra, initial encounter for closed fracture Status: Acute Assessment and Plan: 02/26/24: * CT the abdomen pelvis showing compression fracture of L2 * Continue with PT and OT * TLSO brace * Continue pain control * Case coordination working on rehab needs 02/27/24: * Continue with PT and OT * Case management following * 02/27 waiting for placement- stable 02/29/24: Date of discharge - Pt remains stable without any further complications. She is stable for discharge today as she has a bed ready at [facility]. (2) Acute UTI: Code(s): N39.0 - Urinary tract infection, site not specified Status: Acute Assessment and Plan: 02/26/24: * UA showing trace ketone, 2+ urine blood, positive nitrate, 1+ leukocyte, 21-50 urine RBC, 51-100 urine WBC, 4+ bacteria * Urine culture showing E coli on final read which is pansensitive * Rocephin discontinued and patient started on Keflex oral 02/29/24: Date of Discharge: Pt is stable with regards to UTI. She has been transitioned to oral keflex and has three doses left that will be prescribed. (3) Essential hypertension: Code(s): I10 - Essential (primary) hypertension Status: Chronic Assessment and Plan: 02/26/24: * Blood pressure ranging 127/52 to 150/60 * Continue propranolol 02/27/24: * Will increase propranolol to 20 mg b.i.d. * 02/27- reviewed- stable 02/29/24: Date of discharge - BP is stable. Will discharge with increase in dose of Propanolol to 20 mg BID as her pulse is tolerating well. (4) Prediabetes: Code(s): R73.03 - Prediabetes Status: Chronic Assessment and Plan: 02/26/24: * Blood sugars ranging 103-160 * Hgb A1C pending * Will hold on medication today all hemoglobin A1c is pending 02/27/24: * Blood sugars ranging 103-114 * Hgb A1C 6.1 * Accu checks AC/HS * Low-dose SSI ordered * hypoglycemic protocol in place * Diabetic diet ordered 02/29/24: Date of discharge - Fasting glucose in the 130s. Will initiate SSI low dose upon discharge as well as hypoglycemic orders based on pt's A1C. (5) Hypothyroid: Code(s): E03.9 - Hypothyroidism, unspecified Status: Chronic Assessment and Plan: 02/26/24: * Continue Synthroid 02/27/24: * No change to current treatment plan 02/29/24: Date of discharge - Continue synthroid. (6) Pressure ulcer: Code(s): L89.90 - Pressure ulcer of unspecified site, unspecified stage Status: Acute Assessment and Plan: * 02/29/24: Wound gel and cover dressings to promote moist wound healing daily. DS: Summary Hospital Course Reason for hospitalization: Back Pain Hospital Course: This is a 73-year-old female who presented to the hospital and subsequently admitted on 02/24/24 after developing complaints of back pain. Workup in the hospital included an abdomen pelvis CT which showed an L2 compression fracture which is likely acute, bilateral nonobstructing renal stones, cholelithiasis, splenomegaly. Chest x-ray was negative. Initial labs were essentially unremarkable. Troponin was negative, procalcitonin 0.1. UA was obtained which showed trace ketone, 2+ urine blood, positive nitrate, 1+ leukocyte, 21-50 urine RB
--- NOTE | 2024-02-29 13:02 | PM.DS ---
DS: Admitting Diagnosis Discharge Date 02/29/24 Admitting Diagnosis 1) Lumbar Compression Fracture 2) UTI 3) HTN 4) Pre-Diabetes 5) Hypothyroidism DS: Discharge Diagnosis Discharge Diagnosis (1) Lumbar compression fracture: Code(s): S32.000A - Wedge compression fracture of unspecified lumbar vertebra, initial encounter for closed fracture Status: Acute Assessment and Plan: 02/26/24: CT the abdomen pelvis showing compression fracture of L2 Continue with PT and OT TLSO brace Continue pain control Case coordination working on rehab needs 02/27/24: Continue with PT and OT Case management following 02/27 waiting for placement- stable 02/29/24: Date of discharge - Pt remains stable without any further complications. She is stable for discharge today as she has a bed ready at SNF. (2) Acute UTI: Code(s): N39.0 - Urinary tract infection, site not specified Status: Acute Assessment and Plan: 02/26/24: UA showing trace ketone, 2+ urine blood, positive nitrate, 1+ leukocyte, 21-50 urine RBC, 51-100 urine WBC, 4+ bacteria Urine culture showing E coli on final read which is pansensitive Rocephin discontinued and patient started on Keflex oral 02/29/24: Date of Discharge: Pt is stable with regards to UTI. She has been transitioned to oral keflex and has three doses left that will be prescribed. (3) Essential hypertension: Code(s): I10 - Essential (primary) hypertension Status: Chronic Assessment and Plan: 02/26/24: Blood pressure ranging 127/52 to 150/60 Continue propranolol 02/27/24: Will increase propranolol to 20 mg b.i.d. 02/27- reviewed- stable 02/29/24: Date of discharge - BP is stable. Will discharge with increase in dose of Propanolol to 20 mg BID as her pulse is tolerating well. (4) Prediabetes: Code(s): R73.03 - Prediabetes Status: Chronic Assessment and Plan: 02/26/24: Blood sugars ranging 103-160 Hgb A1C pending Will hold on medication today all hemoglobin A1c is pending 02/27/24: Blood sugars ranging 103-114 Hgb A1C 6.1 Accu checks AC/HS Low-dose SSI ordered hypoglycemic protocol in place Diabetic diet ordered 02/29/24: Date of discharge - Fasting glucose in the 130s. Will initiate SSI low dose upon discharge as well as hypoglycemic orders based on pt's A1C. (5) Hypothyroid: Code(s): E03.9 - Hypothyroidism, unspecified Status: Chronic Assessment and Plan: 02/26/24: Continue Synthroid 02/27/24: No change to current treatment plan 02/29/24: Date of discharge - Continue synthroid. (6) Pressure ulcer: Code(s): L89.90 - Pressure ulcer of unspecified site, unspecified stage Status: Acute Assessment and Plan: 02/29/24: Wound gel and cover dressings to promote moist wound healing daily. DS: Summary Hospital Course Reason for hospitalization: Back Pain Hospital Course: This is a 73-year-old female who presented to the hospital and subsequently admitted on 02/24/24 after developing complaints of back pain. Workup in the hospital included an abdomen pelvis CT which showed an L2 compression fracture which is likely acute, bilateral nonobstructing renal stones, cholelithiasis, splenomegaly. Chest x-ray was negative. Initial labs were essentially unremarkable. Troponin was negative, procalcitonin 0.1. UA was obtained which showed trace ketone, 2+ urine blood, positive nitrate, 1+ leukocyte, 21-50 urine RBC, 51-100 urine WBC, 4+ bacteria. Urine culture was showing E coli on final read which was pansensitive. She was on Rocephin and transitioned over to Keflex. She was seen by Neurosurgery and was provided a TLSO brace. PT and OT were ordered and she has progressed well without incident. She is stable today for discharge to SNF and has been accepted. Status at Discharge Functional status at discharge: wheelchair bound Overall status at discharge: patient is not back to base
[2024-02-29 14:00] VITALS: BP 106/46; PULSE 60; RESP 20; TEMP 36.2; O2SAT 97
[2024-02-29 18:12] LABS: Glucose Point of Care 133 mg/dl (65-105)
[2024-02-29 19:45] LABS: Glucose Point of Care 141 mg/dl (65-105)
== END 2024-02-29 21:13 ==
LOC: ANHED 06:27 → ANH3MEDSUR 07:30
PROVIDERS: Family Medicine; Nurse Practitioner Acute Care; Admitting Provider Student in an Organized Health Care Education/Training Program; Emergency Provider Emergency Medicine; PCP Family Medicine; Visit Provider Nurse Practitioner Adult Health
DX: S32.020A Wedge compression fracture of second lumbar vertebra, initial encounter for closed fracture (principal); N39.0 Urinary tract infection, site not specified; E55.9 Vitamin D deficiency, unspecified; I10 Essential (primary) hypertension; E21.0 Primary hyperparathyroidism; R73.03 Prediabetes; E03.9 Hypothyroidism, unspecified; L89.90 Pressure ulcer of unspecified site, unspecified stage
CPT/HCPCS: 36415; 71046; 74177; 80048; 80053; 80076; 81001; 82948; 83036; 83605; 83735; 84145; 84484; 85025; 85610; 85730; 87077; 87086; 87088; 87186; 93005; 96365; 96372; 96375; 96376; 97110; 97163; 97165; 97530; 97535; 99285; A9270; G0378; J0696; J1170; J1650; Q9967

== ENCOUNTER 2024-03-22 09:01 | Observation (INO) | payer MEDICARE, SELFPAY ==
[2024-03-22] VITALS (13 sets, daily range): BP systolic 113–148; BP diastolic 50–72; PULSE 57–68; RESP 13–24; TEMP 36.3–36.7; O2SAT 94–99; BMI 53.1
--- NOTE | ~2024-03-22 | CT_ITS ---
EXAMINATION: CT brain wo con DATE: 03/22/2024 09:51 INDICATION: Dizziness and syncope. Head injury. TECHNIQUE: Computed tomography (CT) of the head was performed without intravenous contrast. Sagittal and coronal reconstructions were performed. The mA was adjusted according to patient size. Iterative reconstruction technique was employed. The dose-length product was 681.00 mGy-cm. COMPARISON: None FINDINGS: No fracture. No acute intracranial hemorrhage, acute infarction or abnormal extra axial fluid collect ion. Symmetric prominence of the sulci consistent with mild age-appropriate diffuse cerebral volume l oss. Ventricles are normal and symmetric. No mass/mass effect. There is layering fluid/mucus in the right maxillary sinus which demonstrates thickened cirrhotic leavitt consistent with likely acute on ch ronic sinusitis. The orbits and mastoid air cells are normal. IMPRESSION: 1. No fracture or acute intracranial process. 2. Likely acute on chronic right maxillary sinusitis. Reviewed, dictated and finalized at location A.
--- NOTE | ~2024-03-22 | XR_ITS ---
EXAMINATION: XR chest 2V DATE: 03/22/2024 10:10 INDICATION: Syncope TECHNIQUE: frontal and lateral views of the chest were obtained. COMPARISON: Chest radiograph dated 02/24/2024 FINDINGS: Mild streaky atelectasis at the left lung base. No other airspace opacities, pulmonary edema, pleural effusion or pneumothorax. The cardiomediastinal silhouette is normal. Mild thoracic spondylosis. IMPRESSION: 1. Mild streaky left basilar atelectasis. Reviewed, dictated and finalized at location A.
--- NOTE | ~2024-03-22 | XR_ITS ---
Right Knee Technique: AP, lateral, and sunrise views were obtained. Clinical History: Pain Findings: No fracture or dislocation is seen. There is severe tricompartmental osteoarthritis, with e xtensive osteophyte formation, and joint space narrowing of all 3 compartments.. Soft tissues are unr emarkable. No joint effusion is seen. Impression: Severe tricompartmental osteoarthritis, as detailed above. Reviewed, dictated and finalized at location M. Impression: Severe tricompartmental osteoarthritis, as detailed above.
--- NOTE | ~2024-03-22 | CT_ITS ---
EXAMINATION: CT cervical spine wo con DATE: 03/22/2024 09:52 INDICATION: Syncope. Head injury. TECHNIQUE: Computed tomography (CT) of the cervical spine was performed without intravenous contrast. Automated exposure control and iterative reconstruction technique were employed. The dose-length pro duct was 559.75 mGy-cm. COMPARISON: None FINDINGS: Straightening of the normal cervical lordosis which could be positional or due to muscle spasm. Verte bral body heights are normal. No acute fracture. Moderate disc height loss at C5-C6 and C6-C7. Mild d isc height loss at the remaining cervical levels. Posterior disc osteophyte complexes result in mild central canal stenosis at C5-C6 and C6-C7. Disc bulges results in minimal central canal stenosis at C 3-C4. Severe uncovertebral osteoarthritis on the right at C3-C4 and on the left at C5-C6. Moderate un covertebral osteoarthritis on the left at C3-C4, right at C5-C6 and bilaterally at C6-C7. Severe face t osteoarthritis on the right at C2-C3 with mild to moderate facet osteoarthritis throughout the [place] of the cervical spine. This contributes to bilateral multilevel mild neural foraminal stenosis most prominent on the left at C3-C4, bilaterally at C5-C6 and on the right at C6-C7. There are severa l surgical clips anterior and inferior to the right thyroid lobe. Cervical soft tissues are otherwise unremarkable. Visualized apices of the lungs are clear. Anatomic variant right-sided aortic arch wit h aberrant retroesophageal left subclavian artery. IMPRESSION: 1. Moderate cervical spondylosis. No acute osseous adenopathy. 2. 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 Reviewed, dictated and finalized at location A.
--- NOTE | 2024-03-22 09:05 | ECG_ITS ---
Test Date: 2024-03-22 09:09:38 Measurements Intervals [place] Rate: 60 P: 71 IN: 179 QRS: 38 QRSD: 93 T: 66 QT: 413 QTc: 414 Interpretive Statements SINUS RHYTHM BORDERLINE ST-T WAVE ABNORMALITY- HIGH LATERAL LEADS BASELINE ARTIFACT- I, II, III, AVR, AVL, AVF BORDERLINE ECG Compared to ECG 02/24/2024 03:47:48 No significant changes Electronically Signed On 03-22-2024 10:46:37 CDT by Yury Ng D.O.
--- NOTE | 2024-03-22 09:11 | ED.SYNCOPE ---
HPI - Syncope General Chief Complaint: Syncope Stated Complaint: syncope, fall from chair Time Seen by Provider: 03/22/24 09:07 Source: patient and old records reviewed Mode of arrival: EMS Limitations: no limitations History of Present Illness HPI narrative: This is a 73-year-old female who presents the ED via EMS with report of syncope. Patient is currently resident of [facility]. Patient reports she has had an issue with her [place] catheter over the last few days. She was diagnosed with a urinary tract infection recently and admitted to the hospital here. She reports d/t the pain with her catheter, she has been laying flat in bed nonstop for the past few days. Today she sat up for breakfast and was attempting to stand/transfer to her wheelchair when she became dizzy and had a syncopal episode. She fell forward from the chair and hit her head on the ground. She did sustain a laceration to her forehead. She is unsure how long she lost consciousness for. She currently complains of pain to her right knee and her forehead. Denies neck or back pain. She does have a recent L2 compression fracture and is currently wearing a lumbar brace. Denies numbness, tingling, focal weakness, vision changes, nausea, chest pain, shortness of breath. Related Data Home Medications Medication Instructions Recorded Confirmed multivitamin-ferrous 1 tablet PO DAILY 12/25/22 03/02/24 fumarate-folic acid 18 mg-400 mcg tablet (Centrum Women) soy isoflavone-black cohosh 1 cap PO DAILY 12/25/22 03/02/24 root-magnolia bark 155 mg capsule (Estroven) Allergies Allergy/AdvReac Type Severity Reaction Status Date / Time ibuprofen Allergy Unknown Nausea Verified 02/24/24 03:42 lisinopril Allergy Unknown azotemia Verified 02/24/24 03:42 naproxen Allergy Unknown Skin Verified 02/24/24 03:42 Reaction Sulfa (Sulfonamide Allergy Unknown Nausea Verified 02/24/24 03:42 Antibiotics) Review of Systems Review of Systems: All systems reviewed & are unremarkable except as noted in HPI. All systems reviewed & are unremarkable except as noted in HPI and below PMFSH Past Medical History Medical History Atrial fib/flutter, transient Chronic kidney disease, stage 3 (moderate) Heart failure with preserved ejection fraction, class III Lumbar compression fracture Venous (peripheral) insufficiency Family History Family History Grandparent Diabetes mellitus Hypertension Family history of cardiovascular disease Carcinoma of colon Mother Depression Hypertension Family history of allergic disorder Family history of elevated blood lipids Cerebrovascular accident Father Family history of glaucoma Cerebrovascular accident Sibling Family history of elevated blood lipids Social History Social History Smoking status: Never smoker Alcohol intake: never Substance use: never Do You Feel Safe in your Home?: No Lack of Transportation: No Lack of Food: Never True Current Housing: I Have Housing Concerned About Future Housing: No Difficulty Paying Gas/Electric Bills: No Difficulty Paying for Meds: No Currently Unemployed: No Education: Bachelor's Degree Difficulty w/ Childcare or Family Care: No Spiritual care concerns: No Exam Narrative: GENERAL: Chronically ill-appearing, morbidly obese with BMI of 56.0, non-toxic, in no acute distress. HEAD: Normocephalic. Vertical 2.5cm laceration to midline forehead. No active bleeding. Small surrounding contusion EYES: PERRL/EOMI, jorge luis fatiguable nystagmus with EOM, worse with gaze to the R. conjunctivae are clear bilaterally. ENT: Small amount of cerumen in right ear canal, though still able to visualize TM. TMs appear normal bilaterally. No hemotympanum
[2024-03-22 09:54] LABS: Basophils Absolute Auto 0.1 K/mm3 (0.0-0.1); Basophils Percent Auto 0.8 % (0.2-1.2); Eosinophils Absolute Auto 0.5 K/mm3 (0-0.3); Eosinophils Percent Auto 3.5 % (0-4.4); Hematocrit 45.4 % (37.0-47.0); Hemoglobin 14.4 g/dL (12.0-15.0); Immature Granulocyte Absolute 0.13 K/mm3 (0.00-0.031); Lymphocytes Percent Auto 11.5 % (18.3-44.2); Mean Corpuscular HGB Conc 31.7 g/dl (32-36); Mean Corpuscular Hemoglobin 28.1 pg (26-34); Mean Corpuscular Volume 88.7 fl (80-100); Mean Platelet Volume 10.1 fl (7.4-10.4); Monocytes Absolute Auto 0.7 K/mm3 (0.1-0.6); Neutrophils Absolute Auto 10.2 K/mm3 (1.3-6.7); Neutrophils Percent Auto 78.2 % (45.5-73.1); Platelet Count Result 208 k/mm3 (150-375); Red Blood Count 5.12 M/mm3 (4.2-5.4); Red Cell Distribution Width 14.9 % (11.5-14.5); White Blood Count 13.1 K/mm3 (4.5-10.0)
[2024-03-22 10:00] LABS: Appearance Urine Sl Cloudy (Clear); Color Urine Yellow (Yellow); Glucose Urine UA Negative (Negative); Ketones Urine Negative (Negative); Protein Urine 1+ (Negative); Specific Grav Ur 1.015 (1.010-1.020)
[2024-03-22 10:01] LABS: Add Urine Microscopic? YES; Bilirubin Urine Negative (Negative); Blood Urine 2+ (Negative); Leukocyte Esterase Ur 3+ LEU/UL (Negative); Nitrate Urine Positive (Negative)
[2024-03-22] MEDS: LIDOCAINE HCL 1% LOCAL INJ 10 ML VIAL 5 ML INFILTRATE (10:08)
[2024-03-22] MEDS: SODIUM CHLORIDE 0.9% IV 500 ML 999 ML IV CONT (10:09)
[2024-03-22] MEDS: MECLIZINE HCL 25 MG TABLET PO ×2 (10:09→14:34)
[2024-03-22 10:12] LABS: Alanine Aminotransferase 17 U/L (6-35); Alkaline Phosphatase 92 U/L (38-126); Anion Gap 11 mmol/L (4-12); Aspartate Amino Transferase 29 U/L (14-36); Bilirubin,Total 0.8 mg/dL (0.2-1.3); Blood Urea Nitrogen 18 mg/dL (7-17); Calcium 9.2 mg/dL (8.4-10.2); Carbon Dioxide 26 mmol/L (22-30); Chloride 98 mmol/L (98-107); Estimated CRCL calculation 91 ml/min; Estimated Glomerular Filt Rate > 60; Glucose 177 mg/dL (65-110); Magnesium 1.6 mg/dL (1.6-2.3); Potassium 3.7 mmol/L (3.4-5.0); Sodium 135 mmol/L (137-145)
[2024-03-22 10:23] LABS: Bacteria Urine 4+ /hpf; Need Manual Microscopic Need Manual; RBC Urine 51-100 /hpf (0-2); Squamous Epithelial Cell Urine Few /hpf (Few); Troponin I < 0.012 ng/mL (0.000-0.034); WBC Urine >100 /hpf (0-3)
[2024-03-22 10:27] LABS: Mucus Urine Few /lpf
[2024-03-22] MEDS: MAGNESIUM SULF 1 GM/D5W 100 ML 1 GM/100 ML BAG IVPB (11:25)
[2024-03-22] MEDS: traMADol HCL (*CRX) 50 MG TABLET PO (12:18)
--- NOTE | 2024-03-22 12:26 | ECG_ITS ---
Test Date: 2024-03-22 12:32:53 Measurements Intervals [place] Rate: 55 P: 244 [place]: 150 QRS: 36 QRSD: 100 T: 79 QT: 415 QTc: 399 Interpretive Statements SINUS BRADYCARDIA BORDERLINE ST-T WAVE ABNORMALITY- HIGH LATERAL LEADS BASELINE ARTIFACT- I, II, III, AVR, AVL, AVF, V1-V6 BORDERLINE ECG Compared to ECG 03/22/2024 09:09:38 HEART RATE HAS DECREASED Electronically Signed On 03-22-2024 13:18:50 CDT by Yury Ng D.O.
[2024-03-22 12:51] LABS: Troponin I < 0.012 ng/mL (0.000-0.034)
--- NOTE | 2024-03-22 15:03 | ADMGEN ---
This patient, Mandy Rodriguez, was admitted to 3 [facility] Surg Room 304-01. Patient/family oriented to hospital policies and general routines including ID bracelet, bed and alarms, visiting hours, pain management, procedures, bathroom and other care routines, personal items, smoking policy, room service/diet, and visiting hours. Information on how to activate the Rapid Response Team has been discussed. Patient/Family are encouraged to report perceived risks to care and to ask questions if they do not understand what they are told or what they should do. Report from Sarita in ER.
--- NOTE | 2024-03-22 16:10 | PM.IMHP ---
H&P: HPI History of Present Illness Date/Time: 03/22/24 16:10 Chief Complaint: Syncope Narrative: 73 y/o F presents here with syncope with PMH of atrial fibrillation/flutter (transient), CKD stage 3, HFpEF, and venous insufficiency. The patient presents here via EMS from [facility] (Rehab side) for further evaluation after a syncopal event. The patient reports that she was sitting at breakfast for about 5-7 minutes when she had no warning before she passed out. No pre-syncopal sensation. Patient reports no recollection of falling out of her chair and woke on the floor. + head strike and unknown duration of LOC. Patient sustained a laceration to her forehead which has since been sutured. Has lumbar brace in place due to recent L2 fracture that was diagnosed on 02/24/2024. Prior to syncopal episode, patient reports she has been more immobile than usual due to issues with her Monroe catheter. Patient has Monroe in place due to immobility and wounds to buttocks. Recently exchanged 2-3 days ago. Patient was also treated for a UTI during her admission on 02/23-02/28. Syncopal episode was accompanied by dizziness that occurred with rolling onto her side and she described the dizziness as the room was spinning. Prior to syncope the episodes were shorter (only lasting a few seconds) and not accompanied by feeling as though the room is spinning. Since syncope the dizziness has worsened and length of time has increased. +Chills. Denying abdominal pain, chest pain, palpitations, nausea, vomiting, fever, or diarrhea. Initial VS at presentation: 97.3? F, HR 65, RR 24, 134/69, and 96% on RA ED workup showed: WBC 13.1, no anemia, creatinine 0.7 and GFR >60, glucose 177, initial troponin negative, and UA consistent with UTI. Head CT showed no acute fracture or intracranial process, likely has acute on chronic right maxillary sinusitis. 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 CXR showed mild streaky left basilar atelectasis. Knee XR showed severe tricompartmental osteoarthritis. Review of Systems Review of Systems: All systems reviewed & are unremarkable except as noted in HPI and below PMFSH Past Medical History Medical History Atrial fib/flutter, transient Chronic kidney disease, stage 3 (moderate) Diverticulosis of colon (without mention of hemorrhage) Essential hypertension Essential tremor Heart failure with preserved ejection fraction, class III Hiatal hernia with gastroesophageal reflux Hypothyroid Lumbar compression fracture Primary hyperparathyroidism Type 2 diabetes mellitus Venous (peripheral) insufficiency Vitamin D deficiency, unspecified Family History Family History Grandparent Family history of cardiovascular disease Diabetes mellitus Carcinoma of colon Hypertension Mother Family history of allergic disorder Family history of elevated blood lipids Depression Hypertension Cerebrovascular accident Cirrhosis Father Family history of glaucoma Cerebrovascular accident Sibling Family history of elevated blood lipids Social History Social History Smoking status: Former smoker Tobacco type: cigarettes Alcohol intake: never Substance use: never Do You Feel Safe in your Home?: Yes Lack of Transportation: YES Lack of Food: Never True Current Housing: I Have Housing Concerned About Future Housing: No Difficulty Paying Gas/Electric Bills: No Difficulty Paying for Meds: No Currently Unemployed: No Education: Don't Know Difficulty w/ Childcare or Family Care: No Spiritual care concerns: No Meds Home Medications and Allergies Home Medications Medication Instructions Recorded
[2024-03-22 16:46] LABS: Glucose Point of Care 128 mg/dl (65-105)
[2024-03-22 18:14] LABS: Troponin I < 0.012 ng/mL (0.000-0.034)
[2024-03-22 18:44] LABS: Thyroid Stimulating Hormone Reflex 0.601 uIU/mL (0.465-4.68)
[2024-03-22 20:12] LABS: Glucose Point of Care 114 mg/dl (65-105)
[2024-03-22] MEDS: PROPRANOLOL HCL 20 MG TABLET PO (21:06)
[2024-03-22] MEDS: HYDROcodone/acetaminophen (*CRX) 5-325 MG TABLET 1 TAB PO (21:07)
[2024-03-22] MEDS: TOLNAFTATE 1% POWDER 45 GM BTL 1 APPLIC TOPICAL (21:09)
[2024-03-22] MEDS: FLUTICASONE PROPIONATE 0.05% NA SPR 16 GM BTL (*BKC) 1 SPRAY NASAL (21:10)
[2024-03-23] VITALS (9 sets, daily range): BP systolic 120–153; BP diastolic 48–77; PULSE 49–63; RESP 16–20; TEMP 36.4–36.8; O2SAT 92–94; BMI 53.1
[2024-03-23] MEDS: HYDROcodone/acetaminophen (*CRX) 5-325 MG TABLET 1 TAB PO ×2 (03:32→20:45)
[2024-03-23] MEDS: LEVOTHYROXINE SODIUM 75 MCG TABLET PO (05:16)
[2024-03-23] MEDS: LEVOTHYROXINE SODIUM 100 MCG TABLET PO (05:16)
[2024-03-23] MEDS: MECLIZINE HCL 25 MG TABLET PO (05:17)
[2024-03-23 06:33] LABS: Basophils Absolute Auto 0.1 K/mm3 (0.0-0.1); Basophils Percent Auto 0.7 % (0.2-1.2); Eosinophils Absolute Auto 0.5 K/mm3 (0-0.3); Eosinophils Percent Auto 4.8 % (0-4.4); Hematocrit 38.5 % (37.0-47.0); Hemoglobin 12.3 g/dL (12.0-15.0); Immature Granulocyte Absolute 0.06 K/mm3 (0.00-0.031); Immature Granulocyte Percent A 0.6 % (0-0.5); Lymphocytes Absolute Auto 1.49 K/mm3 (0.9-3.2); Lymphocytes Percent Auto 15.9 % (18.3-44.2); Mean Corpuscular HGB Conc 31.9 g/dl (32-36); Mean Corpuscular Hemoglobin 28.2 pg (26-34); Mean Corpuscular Volume 88.3 fl (80-100); Monocytes Absolute Auto 0.7 K/mm3 (0.1-0.6); Monocytes Percent Auto 7.9 % (2.6-8.5); Neutrophils Absolute Auto 6.6 K/mm3 (1.3-6.7); Neutrophils Percent Auto 70.1 % (45.5-73.1); Platelet Count Result 164 k/mm3 (150-375); Red Blood Count 4.36 M/mm3 (4.2-5.4); White Blood Count 9.4 K/mm3 (4.5-10.0)
[2024-03-23 06:44] LABS: Anion Gap 10 mmol/L (4-12); Blood Urea Nitrogen 19 mg/dL (7-17); Calcium 8.9 mg/dL (8.4-10.2); Carbon Dioxide 27 mmol/L (22-30); Chloride 96 mmol/L (98-107); Estimated CRCL calculation 101 ml/min; Estimated Glomerular Filt Rate > 60; Glucose 104 mg/dL (65-110); Potassium 3.9 mmol/L (3.4-5.0); Sodium 133 mmol/L (137-145)
--- NOTE | 2024-03-23 07:52 | PM.IMPN ---
Progress Note: A&P Assessment and Plan (1) Syncope: Qualifiers: Syncope type: unspecified Qualified Code(s): R55 - Syncope and collapse Code(s): R55 - Syncope and collapse Status: Acute Assessment and Plan: Suspect benign paroxysmal vertigo in conjunction with UTI, cannot exclude orthostatic hypotension. Patient unable to tolerate orthostatic vital signs due to immobility. Patient did note that she was having aural fullness prior to syncopal episode. - EKG, initial: Sinus rhythm, borderline ST-T-wave abnormality high lateral leads, baseline artifact. When compared to EKG done in February of 2024 there are no significant changes. - EKG, repeat (1): HR has decreased when compared to EKG done earlier same day. - CXR: Mild streaky left basilar atelectasis - Head CT: No fracutre or acute intracranial process. Likely acute on chronic right maxillary sinusitis. - C spine CT: Moderate cervical spondylosis. No acute osseous adenopathy. 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 - Knee XR right: No fracture or dislocation is seen. There is severe tricompartmental osteoarthritis, with extensive osteophyte formation, and joint space narrowing of all 3 compartments.. Soft tissues are unremarkable. No joint effusion is seen. - Troponin: <0.012 x3 - TSH: 0.601 - telemetry monitoring (2) UTI (urinary tract infection): Qualifiers: Encounter type: initial encounter Indwelling urinary catheter type: indwelling urethral catheter Urinary tract infection type: catheter-associated UTI Qualified Code(s): T83.511A - Infection and inflammatory reaction due to indwelling urethral catheter, initial encounter; N39.0 - Urinary tract infection, site not specified Code(s): N39.0 - Urinary tract infection, site not specified Status: Acute Assessment and Plan: - UA: 1+ protein, 2+ blood, positive nitrates, 3+ leuks, 51-100 RBC, greater than 100 WBC, few epithelial cells, 4+ bacteria, few mucus. - UC: pending - previous micro reviewed, UC on 02/24/2024 showed E coli that was pansensitive - started on Ceftriaxone on 03/22 - Chronic hernandez catheter in place due to immobility and wounds. Per chart review hernandez exchanged 2-3 days ago. (3) Vertigo: Code(s): R42 - Dizziness and giddiness Status: Acute Assessment and Plan: - nystagmus on exam with positional changes in ED, none observed upon re-evaluation - PT eval and treat for vestibular therapy - partial relief with meclizine, continue (4) Chronic kidney disease, stage 3 (moderate): Qualifiers: Chronic kidney disease stage 3 subtype: unspecified whether 3a or 3b Qualified Code(s): N18.30 - Chronic kidney disease, stage 3 unspecified Code(s): N18.3 - Chronic kidney disease, stage 3 (moderate) Status: Chronic Assessment and Plan: - creatinine 0.6 with GFR >60 - trend renal function - trend electrolytes, correct as needed (5) Type 2 diabetes mellitus: Qualifiers: Chronic kidney disease stage: stage 3 (moderate) Chronic kidney disease stage 3 subtype: unspecified whether 3a or 3b Diabetes mellitus complication detail: with chronic kidney disease Diabetes mellitus complication status: with kidney complications Diabetes mellitus detention insulin use: with detention use Qualified Code(s): E11.22 - Type 2 diabetes mellitus with diabetic chronic kidney disease; N18.30 - Chronic kidney disease, stage 3 unspecified; Z79.4 - nursing home (current) use of insulin Code(s): E11.9 - Type 2 diabetes mellitus without complications Status: Chronic Assessment and Plan: - hypoglycemia protocol - POC blood glucose ACHS - home medication: continue home corrective insulin - NovoLog 2-5 units TIDWM and 1-2 HS - A1C 6.1% on 02/26/24 (6) Essential hypertension: Code(s): I10 - Essential (primary) hypertension Status: Chron
[2024-03-23 07:59] LABS: Glucose Point of Care 109 mg/dl (65-105)
[2024-03-23] MEDS: BISACODYL 5 MG TABLET EC PO (08:46)
[2024-03-23] MEDS: MULTIVITAMINS /C LUTEIN (CENTRUM SILVER) TABLET *BKC 1 TAB PO (08:46)
[2024-03-23] MEDS: TOLNAFTATE 1% POWDER 45 GM BTL 1 APPLIC TOPICAL ×2 (08:48→20:46)
[2024-03-23] MEDS: FLUTICASONE PROPIONATE 0.05% NA SPR 16 GM BTL (*BKC) 1 SPRAY NASAL ×2 (08:48→20:45)
[2024-03-23 11:42] LABS: Glucose Point of Care 117 mg/dl (65-105)
[2024-03-23 16:43] LABS: Glucose Point of Care 107 mg/dl (65-105)
[2024-03-23 20:48] LABS: Glucose Point of Care 125 mg/dl (65-105)
[2024-03-24] VITALS (8 sets, daily range): BP systolic 128–150; BP diastolic 50–71; PULSE 51–66; RESP 18; TEMP 36.4–36.6; O2SAT 92–95
--- NOTE | 2024-03-24 05:12 | PCRCNOTE ---
Patient refused apnea link last night. Patient stated she would not wear a cpap.
[2024-03-24] MEDS: HYDROcodone/acetaminophen (*CRX) 5-325 MG TABLET 1 TAB PO ×2 (06:16→10:19)
[2024-03-24] MEDS: LEVOTHYROXINE SODIUM 75 MCG TABLET PO (06:16)
[2024-03-24] MEDS: LEVOTHYROXINE SODIUM 100 MCG TABLET PO (06:16)
[2024-03-24 07:28] LABS: Glucose Point of Care 104 mg/dl (65-105)
[2024-03-24 08:22] LABS: Basophils Absolute Auto 0.1 K/mm3 (0.0-0.1); Eosinophils Absolute Auto 0.4 K/mm3 (0-0.3); Eosinophils Percent Auto 5.8 % (0-4.4); Hematocrit 37.9 % (37.0-47.0); Hemoglobin 11.9 g/dL (12.0-15.0); Immature Granulocyte Absolute 0.04 K/mm3 (0.00-0.031); Immature Granulocyte Percent A 0.6 % (0-0.5); Lymphocytes Absolute Auto 1.41 K/mm3 (0.9-3.2); Lymphocytes Percent Auto 19.8 % (18.3-44.2); Mean Corpuscular HGB Conc 31.4 g/dl (32-36); Mean Corpuscular Hemoglobin 27.8 pg (26-34); Mean Corpuscular Volume 88.6 fl (80-100); Mean Platelet Volume 9.5 fl (7.4-10.4); Monocytes Absolute Auto 0.6 K/mm3 (0.1-0.6); Neutrophils Absolute Auto 4.6 K/mm3 (1.3-6.7); Neutrophils Percent Auto 63.8 % (45.5-73.1); Platelet Count Result 158 k/mm3 (150-375); Red Blood Count 4.28 M/mm3 (4.2-5.4); Red Cell Distribution Width 14.9 % (11.5-14.5); White Blood Count 7.1 K/mm3 (4.5-10.0)
[2024-03-24 08:39] LABS: Alanine Aminotransferase 15 U/L (6-35); Albumin Level 3.6 g/dL (3.5-5.1); Alkaline Phosphatase 73 U/L (38-126); Anion Gap 8 mmol/L (4-12); Aspartate Amino Transferase 25 U/L (14-36); Bilirubin,Total 0.6 mg/dL (0.2-1.3); Blood Urea Nitrogen 17 mg/dL (7-17); Calcium 8.9 mg/dL (8.4-10.2); Carbon Dioxide 30 mmol/L (22-30); Chloride 96 mmol/L (98-107); Estimated CRCL calculation 119 ml/min; Estimated Glomerular Filt Rate > 60; Glucose 99 mg/dL (65-110); Potassium 3.8 mmol/L (3.4-5.0); Sodium 134 mmol/L (137-145)
[2024-03-24] MEDS: BISACODYL 5 MG TABLET EC PO (08:59)
[2024-03-24] MEDS: MULTIVITAMINS /C LUTEIN (CENTRUM SILVER) TABLET *BKC 1 TAB PO (08:59)
[2024-03-24] MEDS: FLUTICASONE PROPIONATE 0.05% NA SPR 16 GM BTL (*BKC) 1 SPRAY NASAL ×2 (09:00→21:19)
[2024-03-24] MEDS: TOLNAFTATE 1% POWDER 45 GM BTL 1 APPLIC TOPICAL ×2 (09:00→21:20)
[2024-03-24 11:30] LABS: Glucose Point of Care 121 mg/dl (65-105)
--- NOTE | 2024-03-24 13:23 | PM.IMPN ---
Progress Note: A&P Assessment and Plan (1) Syncope: Qualifiers: Syncope type: unspecified Qualified Code(s): R55 - Syncope and collapse Code(s): R55 - Syncope and collapse Status: Acute Assessment and Plan: Suspect benign paroxysmal vertigo, cannot exclude orthostatic hypotension. Patient unable to tolerate orthostatic vital signs due to immobility. Patient did note that she was having aural fullness prior to syncopal episode. - EKG, initial: Sinus rhythm, borderline ST-T-wave abnormality high lateral leads, baseline artifact. When compared to EKG done in February of 2024 there are no significant changes. - EKG, repeat (1): HR has decreased when compared to EKG done earlier same day. - CXR: Mild streaky left basilar atelectasis - Head CT: No fracutre or acute intracranial process. Likely acute on chronic right maxillary sinusitis. - C spine CT: Moderate cervical spondylosis. No acute osseous adenopathy. 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 - Knee XR right: No fracture or dislocation is seen. There is severe tricompartmental osteoarthritis, with extensive osteophyte formation, and joint space narrowing of all 3 compartments.. Soft tissues are unremarkable. No joint effusion is seen. - Troponin: <0.012 x3 - TSH: 0.601 - telemetry monitoring (2) Vertigo: Code(s): R42 - Dizziness and giddiness Status: Acute Assessment and Plan: - nystagmus on exam with positional changes in ED and with PT vestibular therapy - PT eval and treat for vestibular therapy - partial relief with meclizine, continue - consider calling ENT for further recommendation as patient does not tolerate epleys maneuver (3) Corneal abrasion, right: Code(s): S05.01XA - Injury of conjunctiva and corneal abrasion without foreign body, right eye, initial encounter Status: Acute Assessment and Plan: Patient complaining of right eye pain with foreign body sensation and blurred vision. She notes that after her syncopal episode she did touch her eye because it hurt and believes she may have scratched it. - Slit lamp test performed and a corneal abrasion that is round, < 4 mm is seen in the 7 o'clock position of her right eye - erythromycin ointment ordered - monitor (4) UTI (urinary tract infection): Qualifiers: Encounter type: initial encounter Indwelling urinary catheter type: indwelling urethral catheter Urinary tract infection type: catheter-associated UTI Qualified Code(s): T83.511A - Infection and inflammatory reaction due to indwelling urethral catheter, initial encounter; N39.0 - Urinary tract infection, site not specified Code(s): N39.0 - Urinary tract infection, site not specified Status: Acute Assessment and Plan: - UA: 1+ protein, 2+ blood, positive nitrates, 3+ leuks, 51-100 RBC, greater than 100 WBC, few epithelial cells, 4+ bacteria, few mucus. - UC: negative - previous micro reviewed, UC on 02/24/2024 showed E coli that was pansensitive - started on Ceftriaxone on 03/22, discontinued on 03/24 - Chronic hernandez catheter in place due to immobility and wounds. Per chart review hernandez exchanged 2-3 days ago. (5) Chronic kidney disease, stage 3 (moderate): Qualifiers: Chronic kidney disease stage 3 subtype: unspecified whether 3a or 3b Qualified Code(s): N18.30 - Chronic kidney disease, stage 3 unspecified Code(s): N18.3 - Chronic kidney disease, stage 3 (moderate) Status: Chronic Assessment and Plan: - BUN/Cr 17/0.5 - trend renal function - trend electrolytes, correct as needed (6) Type 2 diabetes mellitus: Qualifiers: Diabetes mellitus group home insulin use: with group home use Diabetes mellitus complication status: with kidney complications Diabetes mellitus complication detail: with chronic kidney disease Chronic kidney disease stage: stage 3 (moderat
[2024-03-24] MEDS: TETRACAINE HCL 0.5% OPHTH SOLN 4 ML BTL 1 DROP (14:01)
[2024-03-24] MEDS: DACRIOSE EYE IRRIGATION 118 ML BOTTLE (14:01)
[2024-03-24] MEDS: FLUORESCEIN SOD 1 MG/STRIP (14:01)
[2024-03-24] MEDS: ERYTHROMYCIN OPHTH OINTMENT 1 GM TUBE 1 APPLIC RIGHT EYE ×2 (16:13→21:20)
[2024-03-24 16:28] LABS: Glucose Point of Care 104 mg/dl (65-105)
[2024-03-24 21:06] LABS: Glucose Point of Care 135 mg/dl (65-105)
[2024-03-25] VITALS: PULSE 65
[2024-03-25 04:00] VITALS: PULSE 62
[2024-03-25 05:34] VITALS: BP 138/61; PULSE 63; RESP 20; TEMP 36.4; O2SAT 93
[2024-03-25] MEDS: LEVOTHYROXINE SODIUM 75 MCG TABLET PO (05:56)
[2024-03-25] MEDS: LEVOTHYROXINE SODIUM 100 MCG TABLET PO (05:56)
[2024-03-25] MEDS: ERYTHROMYCIN OPHTH OINTMENT 1 GM TUBE 1 APPLIC RIGHT EYE ×4 (05:56→17:31)
[2024-03-25 06:50] LABS: Basophils Absolute Auto 0.1 K/mm3 (0.0-0.1); Basophils Percent Auto 0.8 % (0.2-1.2); Eosinophils Absolute Auto 0.4 K/mm3 (0-0.3); Eosinophils Percent Auto 5.3 % (0-4.4); Hematocrit 39.2 % (37.0-47.0); Hemoglobin 12.6 g/dL (12.0-15.0); Immature Granulocyte Absolute 0.06 K/mm3 (0.00-0.031); Immature Granulocyte Percent A 0.8 % (0-0.5); Lymphocytes Absolute Auto 1.48 K/mm3 (0.9-3.2); Lymphocytes Percent Auto 19.3 % (18.3-44.2); Mean Corpuscular HGB Conc 32.1 g/dl (32-36); Mean Corpuscular Hemoglobin 28.4 pg (26-34); Mean Corpuscular Volume 88.5 fl (80-100); Mean Platelet Volume 9.7 fl (7.4-10.4); Monocytes Absolute Auto 0.7 K/mm3 (0.1-0.6); Monocytes Percent Auto 8.9 % (2.6-8.5); Neutrophils Percent Auto 64.9 % (45.5-73.1); Platelet Count Result 164 k/mm3 (150-375); Red Blood Count 4.43 M/mm3 (4.2-5.4); Red Cell Distribution Width 14.8 % (11.5-14.5); White Blood Count 7.7 K/mm3 (4.5-10.0)
[2024-03-25 07:01] LABS: Alanine Aminotransferase 16 U/L (6-35); Albumin Level 3.7 g/dL (3.5-5.1); Alkaline Phosphatase 78 U/L (38-126); Anion Gap 8 mmol/L (4-12); Aspartate Amino Transferase 24 U/L (14-36); Bilirubin,Total 0.8 mg/dL (0.2-1.3); Blood Urea Nitrogen 20 mg/dL (7-17); Calcium 9.4 mg/dL (8.4-10.2); Carbon Dioxide 30 mmol/L (22-30); Chloride 97 mmol/L (98-107); Estimated CRCL calculation 119 ml/min; Estimated Glomerular Filt Rate > 60; Glucose 106 mg/dL (65-110); Potassium 3.6 mmol/L (3.4-5.0); Sodium 135 mmol/L (137-145)
--- NOTE | 2024-03-25 07:01 | PM.IMPN ---
Progress Note: A&P Assessment and Plan (1) Syncope: Qualifiers: Syncope type: unspecified Qualified Code(s): R55 - Syncope and collapse Code(s): R55 - Syncope and collapse Status: Acute Assessment and Plan: Suspect benign paroxysmal vertigo, cannot exclude orthostatic hypotension. Patient unable to tolerate orthostatic vital signs due to immobility. Patient did note that she was having aural fullness prior to syncopal episode. - EKG, initial: Sinus rhythm, borderline ST-T-wave abnormality high lateral leads, baseline artifact. When compared to EKG done in February of 2024 there are no significant changes. - EKG, repeat (1): HR has decreased when compared to EKG done earlier same day. - CXR: Mild streaky left basilar atelectasis - Head CT: No fracutre or acute intracranial process. Likely acute on chronic right maxillary sinusitis. - C spine CT: Moderate cervical spondylosis. No acute osseous adenopathy. 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 - Knee XR right: No fracture or dislocation is seen. There is severe tricompartmental osteoarthritis, with extensive osteophyte formation, and joint space narrowing of all 3 compartments.. Soft tissues are unremarkable. No joint effusion is seen. - Troponin: <0.012 x3 - TSH: 0.601 - telemetry monitoring (2) Vertigo: Code(s): R42 - Dizziness and giddiness Status: Acute Assessment and Plan: - nystagmus on exam with positional changes in ED and with PT vestibular therapy - PT eval and treat for vestibular therapy - partial relief with meclizine, continue - started on prednisone 50 mg daily for one week to decrease inflammation of the inner ear - consider calling ENT for further recommendation as patient does not tolerate epleys maneuver (3) Corneal abrasion, right: Code(s): S05.01XA - Injury of conjunctiva and corneal abrasion without foreign body, right eye, initial encounter Status: Acute Assessment and Plan: Patient complaining of right eye pain with foreign body sensation and blurred vision. She notes that after her syncopal episode she did touch her eye because it hurt and believes she may have scratched it. - Slit lamp test performed and a corneal abrasion that is round, < 4 mm is seen in the 7 o'clock position of her right eye - erythromycin ointment ordered - monitor (4) UTI (urinary tract infection): Qualifiers: Encounter type: initial encounter Indwelling urinary catheter type: indwelling urethral catheter Urinary tract infection type: catheter-associated UTI Qualified Code(s): T83.511A - Infection and inflammatory reaction due to indwelling urethral catheter, initial encounter; N39.0 - Urinary tract infection, site not specified Code(s): N39.0 - Urinary tract infection, site not specified Status: Acute Assessment and Plan: - UA: 1+ protein, 2+ blood, positive nitrates, 3+ leuks, 51-100 RBC, greater than 100 WBC, few epithelial cells, 4+ bacteria, few mucus. - UC: negative - previous micro reviewed, UC on 02/24/2024 showed E coli that was pansensitive - started on Ceftriaxone on 03/22, discontinued on 03/24 - Chronic hernandez catheter in place due to immobility and wounds. Per chart review hernandez exchanged 2-3 days ago. (5) Chronic kidney disease, stage 3 (moderate): Qualifiers: Chronic kidney disease stage 3 subtype: unspecified whether 3a or 3b Qualified Code(s): N18.30 - Chronic kidney disease, stage 3 unspecified Code(s): N18.3 - Chronic kidney disease, stage 3 (moderate) Status: Chronic Assessment and Plan: - BUN/Cr 17/0.5 - trend renal function - trend electrolytes, correct as needed (6) Type 2 diabetes mellitus: Qualifiers: Diabetes mellitus terminal worker insulin use: with residential use Diabetes mellitus complication status: with kidney complications Diabetes mellitus compl
[2024-03-25 07:27] LABS: Glucose Point of Care 110 mg/dl (65-105)
[2024-03-25 08:00] VITALS: PULSE 67
[2024-03-25] MEDS: BISACODYL 5 MG TABLET EC PO (09:21)
[2024-03-25] MEDS: predniSONE 40 MG, predniSONE 10 MG 50 MG PO (09:21)
[2024-03-25] MEDS: MULTIVITAMINS /C LUTEIN (CENTRUM SILVER) TABLET *BKC 1 TAB PO (09:21)
[2024-03-25] MEDS: ENOXAPARIN 40 MG/0.4 ML SYRINGE SUB-Q (09:22)
[2024-03-25] MEDS: FLUTICASONE PROPIONATE 0.05% NA SPR 16 GM BTL (*BKC) 1 SPRAY NASAL (09:22)
[2024-03-25] MEDS: TOLNAFTATE 1% POWDER 45 GM BTL 1 APPLIC TOPICAL (09:23)
[2024-03-25] MEDS: HYDROcodone/acetaminophen (*CRX) 5-325 MG TABLET 1 TAB PO (10:48)
[2024-03-25 11:32] LABS: Glucose Point of Care 134 mg/dl (65-105)
[2024-03-25 12:00] VITALS: PULSE 76
--- NOTE | 2024-03-25 13:05 | PM.DS ---
DS: Admitting Diagnosis Discharge Date 03/25/2024 Admitting Diagnosis Syncope vertigo corneal abrasion right uti chronic kidney disease stage 3 type 2 diabetes essential hypertension DS: Discharge Diagnosis Discharge Diagnosis (1) Syncope: Qualifiers: Syncope type: unspecified Qualified Code(s): R55 - Syncope and collapse Code(s): R55 - Syncope and collapse Status: Acute (2) Vertigo: Code(s): R42 - Dizziness and giddiness Status: Acute (3) Corneal abrasion, right: Code(s): S05.01XA - Injury of conjunctiva and corneal abrasion without foreign body, right eye, initial encounter Status: Acute (4) UTI (urinary tract infection): Qualifiers: Encounter type: initial encounter Indwelling urinary catheter type: indwelling urethral catheter Urinary tract infection type: catheter-associated UTI Qualified Code(s): T83.511A - Infection and inflammatory reaction due to indwelling urethral catheter, initial encounter; N39.0 - Urinary tract infection, site not specified Code(s): N39.0 - Urinary tract infection, site not specified Status: Acute (5) Chronic kidney disease, stage 3 (moderate): Qualifiers: Chronic kidney disease stage 3 subtype: unspecified whether 3a or 3b Qualified Code(s): N18.30 - Chronic kidney disease, stage 3 unspecified Code(s): N18.3 - Chronic kidney disease, stage 3 (moderate) Status: Chronic (6) Type 2 diabetes mellitus: Qualifiers: Chronic kidney disease stage: stage 3 (moderate) Chronic kidney disease stage 3 subtype: unspecified whether 3a or 3b Diabetes mellitus complication detail: with chronic kidney disease Diabetes mellitus complication status: with kidney complications Diabetes mellitus snf insulin use: with snf use Qualified Code(s): E11.22 - Type 2 diabetes mellitus with diabetic chronic kidney disease; N18.30 - Chronic kidney disease, stage 3 unspecified; Z79.4 - terminal carman (current) use of insulin Code(s): E11.9 - Type 2 diabetes mellitus without complications Status: Chronic (7) Essential hypertension: Code(s): I10 - Essential (primary) hypertension Status: Chronic DS: Summary Hospital Course Reason for hospitalization: Syncope vertigo corneal abrasion right uti chronic kidney disease stage 3 type 2 diabetes essential hypertension Hospital Course: 73 y/o F presents here with syncope with PMH of atrial fibrillation/flutter (transient), CKD stage 3, HFpEF, and venous insufficiency. Suspect benign paroxysmal vertigo vs UTI vs orthostatic hypotension on admission. Patient sustained a laceration to her forehead which was sutured in the ED. On admission patient had a slight leukocytosis and a urinalysis concerning for infection. Patient has a chronic hernandez catheter in place due to immobility and wounds, per chart review hernandez exchanged 2-3 days ago.She was started on rocephin at that time pending culture results. culture was negative and antibiotic discontinued. EKG showed sinus rhythm. CXR showing atelestasis. Head CT with no fracture or acute intracranial process. 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 Knee XR showed severe tricompartmental osteoarthritis. Suspect that the syncope was more likely vertigo vs orthostatic hypotension, however unable to fully rule out orthostatic hypotension as patient was unable to tolerate orthostatic vital signs due to immobility. Patient did have nystagmus on exam with positional changes in ED and with PT vestibular therapy. There was difficulty performing the epleys maneuver given patients immobility. She noted some relief with meclizine and was started on prednisone for inner ear inflammation. Patient complaining of right eye pain with foreign body sensation and blurred vision. She not
[2024-03-25 14:00] VITALS: BP 142/58; PULSE 75; RESP 18; TEMP 36.2; O2SAT 94
[2024-03-25] MEDS: MECLIZINE HCL 25 MG TABLET PO (14:45)
[2024-03-25 16:33] LABS: Glucose Point of Care 182 mg/dl (65-105)
== END 2024-03-25 18:25 ==
LOC: ANHED 13:13 → ANH3MEDSUR 03-23 06:48
PROVIDERS: Emergency Medicine; Student in an Organized Health Care Education/Training Program; Admitting Provider Internal Medicine; Emergency Provider Physician Assistant; PCP Family Medicine; Visit Provider Student in an Organized Health Care Education/Training Program
DX: T83.511A Infection and inflammatory reaction due to indwelling urethral catheter, initial encounter (principal); N39.0 Urinary tract infection, site not specified; R55 Syncope and collapse; S01.81XA Laceration without foreign body of other part of head, initial encounter; S05.01XA Injury of conjunctiva and corneal abrasion without foreign body, right eye, initial encounter; W18.39XA Other fall on same level, initial encounter; Y84.6 Urinary catheterization as the cause of abnormal reaction of the patient, or of later complication, without mention of misadventure at the time of the procedure; I48.0 Paroxysmal atrial fibrillation; I13.0 Hypertensive heart and chronic kidney disease with heart failure and stage 1 through stage 4 chronic kidney disease, or unspecified chronic kidney disease; I50.9 Heart failure, unspecified; E11.22 Type 2 diabetes mellitus with diabetic chronic kidney disease; N18.30 Chronic kidney disease, stage 3 unspecified; G25.0 Essential tremor; I87.2 Venous insufficiency (chronic) (peripheral); E03.9 Hypothyroidism, unspecified; K21.9 Gastro-esophageal reflux disease without esophagitis; E55.9 Vitamin D deficiency, unspecified; E21.0 Primary hyperparathyroidism; Z79.4 Long term (current) use of insulin; Z79.891 Long term (current) use of opiate analgesic; Z87.891 Personal history of nicotine dependence
CPT/HCPCS: 12001; 36415; 70450; 71046; 72125; 73564; 80048; 80053; 81001; 82948; 83735; 84443; 84484; 85025; 87086; 87088; 93005; 96365; 96367; 96372; 96376; 97110; 97162; 97166; 97530; 99285; A9270; G0378; J0696; J1650; J3475; J7040; J7512

== ENCOUNTER 2025-02-09 00:58 | Emergency (ER) | payer MEDICARE, SELFPAY ==
[2025-02-09] VITALS (9 sets, daily range): BP systolic 105–152; BP diastolic 52–75; PULSE 68–107; RESP 15–19; TEMP 36.9; O2SAT 95–99
--- NOTE | ~2025-02-09 | US_ITS ---
US abdomen limited INDICATION: Elevated liver function tests PROCEDURE: Realtime right upper abdominal ultrasound. COMPARISON: No prior studies for comparison. FINDINGS: Pancreas not well visualized due to bowel gas. Liver echotexture is increased, consistent with fatty infiltration. There is normal directional flow in the portal vein. There are gallstones. There is gallbladder sludge. Gallbladder wall thickening. Common bile duct kyle sures 4 mm. No sonographic Sow's sign. IMPRESSION: 1: Cholelithiasis with gallbladder wall thickening and sludge. Consider cholecystitis in the appropri ate clinical setting. Reviewed, dictated and finalized at location A. IMPRESSION: 1: Cholelithiasis with gallbladder wall thickening and sludge. Consider cholecy stitis in the appropriate clinical setting.
--- NOTE | ~2025-02-09 | XR_ITS ---
XR chest 2V 02/09/2025 01:36 Indication: Left-sided chest pain Procedure: 2 view chest Comparison: 03/22/2024 Findings: Chronic left basilar atelectasis/scarring. No focal pneumonia, edema, pleural effusion or p neumothorax. No acute osseous abnormality. Impression: 1: Chronic left basilar atelectasis/scarring. Reviewed, dictated and finalized at location A. Impression: 1: Chronic left basilar atelectasis/scarring.
--- NOTE | 2025-02-09 00:58 | ECG_ITS ---
Test Date: 2025-02-09 01:02:59 Measurements Intervals [place] Rate: 72 P: 64 DE: 191 QRS: 31 QRSD: 90 T: 61 QT: 369 QTc: 405 Interpretive Statements SINUS RHYTHM LOW QRS VOLTAGE IN PRECORDIAL LEADS [QRS DEFLECTION < 1.0 mV IN CHEST LEADS] Compared to ECG 03/22/2024 12:32:53 Low QRS voltage now present Sinus bradycardia no longer present Electronically Signed On 02-10-2025 15:40:44 CDT by Aaron Russell M.D.
[2025-02-09 01:18] LABS: Hematocrit 41.3 % (37.0-47.0); Hemoglobin 13.1 g/dL (12.0-15.0); Immature Granulocyte Percent A 0.7 % (0-0.5); Lymphocytes Absolute Auto 0.93 K/mm3 (0.9-3.2); Mean Corpuscular HGB Conc 31.7 g/dl (32-36); Mean Corpuscular Hemoglobin 27.9 pg (26-34); Mean Corpuscular Volume 87.9 fl (80-100); Nucleated Red Blood Cells Absolute Auto 0.000 K/mm3 (0.0-0.012); Nucleated Red Blood Cells Perc 0.0 % (0.0-0.2); Platelet Count Result 184 k/mm3 (150-375); Red Blood Count 4.70 M/mm3 (4.2-5.4); White Blood Count 9.7 K/mm3 (4.5-10.0)
[2025-02-09 01:29] LABS: INR 1.1; Prothrombin Time 13.8 Seconds (11.1-14.7)
[2025-02-09 01:30] LABS: Partial Thromboplastin Time 38.9 Seconds (22.3-36.8)
[2025-02-09 01:43] LABS: Alanine Aminotransferase 103 U/L (6-35); Albumin Level 3.7 g/dL (3.5-5.1); Alkaline Phosphatase 131 U/L (38-126); Anion Gap 8 mmol/L (4-12); Aspartate Amino Transferase 339 U/L (14-36); Bilirubin,Total 0.8 mg/dL (0.2-1.3); Blood Urea Nitrogen 8 mg/dL (7-17); Calcium 9.2 mg/dL (8.4-10.2); Carbon Dioxide 29 mmol/L (22-30); Chloride 98 mmol/L (98-107); Estimated CRCL calculation 137 ml/min; Estimated Glomerular Filt Rate > 60; Glucose 177 mg/dL (65-110); Lipase 39 U/L (23-300); Potassium 4.0 mmol/L (3.4-5.0); Sodium 135 mmol/L (137-145); Total Protein 8.0 g/dL (6.3-8.2)
[2025-02-09 01:50] LABS: Troponin I < 0.012 ng/mL (0.000-0.034)
--- NOTE | 2025-02-09 04:04 | ECG_ITS ---
Test Date: 2025-02-09 04:07:30 Measurements Intervals [place] Rate: 66 P: 0 SC: 0 QRS: 27 QRSD: 79 T: 63 QT: 376 QTc: 395 Interpretive Statements SINUS RHYTHM LOW QRS VOLTAGE IN PRECORDIAL LEADS [QRS DEFLECTION < 1.0 mV IN CHEST LEADS] Compared to ECG 02/09/2025 01:02:59 NO SIGNIFICANT CHANGES Electronically Signed On 02-10-2025 15:42:30 CDT by Aaron Russell M.D.
[2025-02-09 04:29] LABS: Troponin I < 0.012 ng/mL (0.000-0.034)
--- OUTSIDE RECORDS SUMMARY | 2025-02-09 07:53 | XMS_ITS | Clinical Summary ---
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 Gender Identity Not on file Sexual Orientation Not on file Plan of Treatment Health Maintenance Due Date Last Done Comments DTAP/TDAP/TD VACCINES (1 - Tdap) 1970 BREAST CANCER SCREENING 1991 COLORECTAL SCREENING 1996 Colorectal Cancer Screening 1996 FIT-DNA Q 3 years 1996 FIT/FOBT Q 1 year 1996 Flex Sig/CT Colonography Q 5 years 1996 PNEUMOCOCCAL VACCINE 50+ YEARS (1 of 1 - PCV) 06/01/20 ZOSTER VACCINE (1 of 2) 2001 OSTEOPOROSIS SCREENING 2016 INFLUENZA VACCINE (#1) 2025 RSV VACCINE (60+ or ) (1 - 1-dose 75+ series) 2026 Care Teams Anesthesia Attending Relationship Specialty Start Date End Date Cherri Valadez MD [address] [facility] [place] [address] PCP - General 07/26/02
--- OUTSIDE RECORDS SUMMARY | 2025-02-09 07:53 | XMS_ITS | Encounter Summary ---
Author Organization [facility] Address 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
--- OUTSIDE RECORDS SUMMARY | 2025-02-09 07:53 | XMS_ITS | Encounter Summary ---
Author Organization [facility] Address 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
[2025-02-09] MEDS: ONDANSETRON HCL ODT 4 MG TABLET PO (08:26)
--- NOTE | 2025-02-09 09:03 | ED_ITS ---
HPI - Chest Pain General Chief Complaint: Chest Pain Stated Complaint: N/V X 2 W/ ASSOCIATED CHEST PAIN Time Seen by Provider: 02/09/25 07:24 History of Present Illness HPI narrative: Pt had two episodes of emesis and then developed some burning in her chest after the emesis which lasted about an hour and resolved. Pt says the nause and pain are gone now. Pt denies SOB. Related Data Home Medications ?Medication ?Instructions ?Recorded ?Confirmed ?Last Taken ?Type multivitamin-ferrous 1 tablet PO DAILY 12/25/22 06/08/24 Unknown History fumarate-folic acid 18 mg-400 mcg tablet (Centrum Women) soy isoflavone-black cohosh 1 cap PO DAILY 12/25/22 06/08/24 Unknown History root-magnolia bark 155 mg capsule (Estroven) cyanocobalamin (vitamin B-12) 1,000 mcg WEEKLY 03/22/24 06/08/24 Unknown History 1,000 mcg/mL injection syringe Allergies Allergy/AdvReac Type Severity Reaction Status Date / Time ibuprofen Allergy Unknown Hives Verified 03/22/24 15:22 lisinopril Allergy Unknown azotemia Verified 02/24/24 03:42 naproxen Allergy Unknown Hives Verified 03/22/24 15:22 Sulfa (Sulfonamide Allergy Unknown Hives Verified 03/22/24 15:22 Antibiotics) tree and shrub pollen Allergy Congested Verified 03/22/24 15:23 Review of Systems 2 Review of Systems: All systems reviewed & are unremarkable except as noted in HPI and below PMFSH Past Medical History Medical History Atrial fib/flutter, transient Chronic kidney disease, stage 3 (moderate) Diverticulosis of colon (without mention of hemorrhage) Essential hypertension Essential tremor Heart failure with preserved ejection fraction, class III Hiatal hernia with gastroesophageal reflux Hypothyroid Lumbar compression fracture Primary hyperparathyroidism Type 2 diabetes mellitus Venous (peripheral) insufficiency Vitamin D deficiency, unspecified Family History Family History Grandparent Family history of cardiovascular disease Diabetes mellitus Carcinoma of colon Hypertension Mother Family history of allergic disorder Family history of elevated blood lipids Depression Hypertension Cerebrovascular accident Cirrhosis Father Family history of glaucoma Cerebrovascular accident Sibling Family history of elevated blood lipids Social History Social History Smoking status: Former smoker Tobacco type: cigarettes Alcohol intake: never Substance use: never Do You Feel Safe in your Home?: Yes Lack of Transportation: YES Lack of Food: Never True Current Housing: I Have Housing Concerned About Future Housing: No Difficulty Paying Gas/Electric Bills: No Difficulty Paying for Meds: No Currently Unemployed: No Education: Don't Know Difficulty w/ Childcare or Family Care: No Spiritual care concerns: No Exam 2 Const: General: healthy appearing and no acute distress Nutritional Appearance: well nourished Orientation/consciousness: patient oriented x3 Limitations: no limitations HENMT: Mouth: Yes Normal oral and palatal mucosa present Eyes: Pupils: Equal, round and reactive pupils present EOM: EOMs intact bilaterally Chest: Chest palpation & inspection: normal inspection of the chest Resp: Effort & Inspection: normal respiratory effort Auscultation: clear to auscultation bilaterally Cardio: Rate: regular rate Rhythm: regular rhythm GI: GI Palp: Yes Soft to palpation and No Tenderness to palpation present (GI) Auscultation: normal bowel sounds Skin: General skin exam: normal color Rashes: no rashes Wounds: no wounds Neuro: General: patient oriented x3, moves all extremities, no meningeal signs and no focal motor deficits Speech: normal speech Extrem: General: normal to inspection and no clubbing, cyanosis or edema Psych: Mental Status: mental status grossly normal Affect: normal affect Attitude: cooperative Course Vital Signs Vital signs: Vital Signs Pulse Rate 78 02/09/25 00:58 Temperature 98.5 F 02/09/25 01:00 Pulse Rate 73 02/09/25 10:39 Respiratory Rate 17 02/09/25 10:39 Blood Pressure 108/52 L 02/09/25 10:39 Pulse Oximetry 99 02/09/25 10:39 Oxygen Delivery Room Air 02/09/25 07:24 MDM - Chest Pain MDM Narrative Medical decision making narrative: Pt had cp after vomiting. likely gastritis with gerd but will rule out cad. ekg unremarkable. trop nl but lft's newly elevated but lipase normal will get gb sono. sono shows cholelithiasis with some GB wallo thickening. normal wbc no fever. will discuss with surgery given lft's. discussed with Dr Coombs said can see in office next week. Lab Data 02/09/25 01:12 02/09/25 01:12 Labs: Lab Results 02/09/25 02/09/25 Range/Units 01:12 04:00 WBC 9.7 (4.5-10.0) K/mm3 RBC 4.70 (4.2-5.4) M/mm3 Hgb 13.1 (12.0-15.0) g/dL Hct 41.3 (37.0-47.0) % MCV 87.9 (80-100) fl MCH 27.9 (26-34) pg MCHC 31.7 L (32-36) g/dl RDW 13.6 (11.5-14.5) % Plt Count 184 (150-375) k/mm3 MPV 9.2 (7.4-10.4) fl Immature Gran % (Auto) 0.7 H (0-0.5) % Neut % (Auto) 83.0 H (45.5-73.1) % Lymph % (Auto) 9.5 L (18.3-44.2) % [place] % (Auto) 5.5 (2.6-8.5) % Eos % (Auto) 0.8 (0-4.4) % Baso % (Auto) 0.5 (0.2-1.2) % Lymph # (Auto) 0.93 (0.9-3.2) K/mm3 [place] # (Auto) 0.5 (0.1-0.6) K/mm3 Eos # (Auto) 0.1 (0-0.3) K/mm3 Baso # (Auto) 0.1 (0.0-0.1) K/mm3 Abs Immat Gran (auto) 0.07 H (0.00-0.031) K/mm3 Absolute Neuts (auto) 8.1 H (1.3-6.7) K/mm3 Absolute Nucleated RBC 0.000 (0.0-0.012) K/mm3 Nucleated RBC % 0.0 (0.0-0.2) % PT 13.8 (11.1-14.7) Seconds INR 1.1 APTT 38.9 H (22.3-36.8) Seconds Sodium 135 L (137-145) mmol/L Potassium 4.0 (3.4-5.0) mmol/L Chloride 98 (98-107) mmol/L Carbon Dioxide 29 (22-30) mmol/L Anion Gap 8 (4-12) mmol/L BUN 8 D (7-17) mg/dL Creatinine 0.40 L (0.7-1.0) mg/dL Estim Creat Clear Calc 137 ml/min Estimated GFR > 60 (59 - ) Glucose 177 H (65-110) mg/dL Calcium 9.2 (8.4-10.2) mg/dL Total Bilirubin 0.8 (0.2-1.3) mg/dL AST 339 H (14-36) U/L ALT 103 H (6-35) U/L Alkaline Phosphatase 131 H (38-126) U/L Troponin I < 0.012 < 0.012 (0.000-0.034) ng/mL Total Protein 8.0 (6.3-8.2) g/dL Albumin 3.7 (3.5-5.1) g/dL Lipase 39 (23-300) U/L Discharge Plan Discharge Clinical Impression: Nausea & vomiting, Cholelithiasis Patient Disposition: NH Longterm/Asst Living Condition: Improved Instructions: Antibiotic Form, Gallstones (ED) Patient Language: Jamaican Prescriptions: New ondansetron 4 mg tablet,disintegrating 4 mg PO Q8H PRN (Reason: nausea and vomiting) Qty: 14 0RF No Action Estroven 155 mg capsule 1 cap PO DAILY Centrum Women 18-400 mg-mcg tablet 1 tablet PO DAILY hydrocodone-acetaminophen 5-325 mg Tablet 1 tablet PO Q4H PRN (Reason: Pain Rated 4-6) Qty: 20 0RF dextrose [Glutose-15] 40 % Gel 15 g PO PRN PRN (Reason: Hypoglycemia) Qty: 112.5 0RF insulin aspart U-100 [Novolog U-100 Insulin aspart] 100 unit/mL Solution 1 - 2 unit subcut HS Qty: 10 0RF Protocol: Insulin Corrective Low-Dose Condition: glucose < 70 mg/dl Dose/Route: Follow Hypoglycemia Order Condition: glucose 70-200 mg/dl Dose/Route: No additional insulin Condition: glucose 201-250 mg/dl Dose/Route: 1 units sub-Q Condition: glucose 251-300 mg/dl Dose/Route: 1 units sub-Q Condition: glucose 301-350 mg/dl Dose/Route: 2 units sub-Q Condition: glucose 351-400 mg/dl Dose/Route: 2 units sub-Q Condition: glucose > 400 mg/dl Dose/Route: Call bisacodyl [Laxative (bisacodyl)] 5 mg Tablet,Delayed Release (Dr/Ec) 5 mg PO QAM Qty: 30 0RF insulin aspart U-100 [Novolog U-100 Insulin aspart] 100 unit/mL Solution 2 - 5 unit subcut TIDWM Qty: 10 0RF Protocol: Insulin Corrective Low-Dose Condition: glucose < 70 mg/dl Dose/Route: Follow Hypoglycemia Order Condition: glucose 70-200 mg/dl Dose/Route: No additional insulin Condition: glucose 201-250 mg/dl Dose/Route: 2 units sub-Q Condition: glucose 251-300 mg/dl Dose/Route: 3 units sub-Q Condition: glucose 301-350 mg/dl Dose/Route: 4 units sub-Q Condition: glucose 351-400 mg/dl Dose/Route: 5 units sub-Q Condition: glucose > 400 mg/dl Dose/Route: Call Protocol Text: *No Correction Dose at Bedtime* tolnaftate 1 % Powder 1 applic topical Q12HR Qty: 30 0RF Rx Instructions: apply under bilateral breast cyanocobalamin (vitamin B-12) 1,000 mcg/mL Syringe 1,000 mcg WEEKLY Rx Instructions: once a day on Sat every 2 weeks. meclizine 25 mg Tablet 25 mg PO TID PRN (Reason: dizziness) Qty: 60 0RF erythromycin 5 mg/gram (0.5 %) Ointment 1 applic RIGHT EYE Q4HWA Qty: 26 0RF prednisone 50 mg Tablet 50 mg PO DAILY@0800 Qty: 6 0RF propranolol 10 mg tablet 10 mg PO Q12H Qty: 60 0RF levothyroxine 175 mcg tablet 175 mcg PO DAILY Qty: 90 3RF Rx Instructions: before meals Follow-up/Referrals: Mikael Coombs MD [Physician] - PHYSICIAN,INTERLOCKING PAVEMENT INSTALLER [Primary Care Provider] -
--- NOTE | 2025-02-09 22:04 | PM.CNGS ---
Assessment and Plan Assessment and plan (1) Cholelithiasis: Code(s): K80.20 - Calculus of gallbladder without cholecystitis without obstruction Status: Acute Assessment and Plan: LFTs elevated. RUQ ultrasound demonstrated evidence of cholelithiasis with gallbladder wall thickening and sludge. Abdominal exam fairly benign. Patient feels much improved in the ED. There is no need for emergent surgery at this time. Patient can follow up with Dr. Coombs in outpatient clinic in 1 week to discuss scheduled laparoscopic cholecystectomy if symptoms persist or continue to worsen. Plan Discussed patient's case and plan of care with Dr. Coombs. History of Present Illness Consult details Consult date: 02/09/25 Reason for consult: other (gallstones) Requesting physician: Fior Mckinnon III, DO Narrative: Patient is a 74 year old female who we have been asked to see in surgical consultation for cholelithiasis. Patient had two episodes of emesis last night after eating a dinner consisting of a burrito, Pringles, and a chocolate bar. Patient also noted some chest pain that was likely some heartburn. Upon admissin to the ED, Ekg unremarkable, troponins normal, but lft's newly elevated. Lipase normal. RUQ ultrasound ordered and demonstrated cholelithiasis with gallbladder wall thickening. Patient afebrile with normal WBC count. [facility] Past Medical History Medical History Atrial fib/flutter, transient Chronic kidney disease, stage 3 (moderate) Diverticulosis of colon (without mention of hemorrhage) Essential hypertension Essential tremor Heart failure with preserved ejection fraction, class III Hiatal hernia with gastroesophageal reflux Hypothyroid Lumbar compression fracture Primary hyperparathyroidism Type 2 diabetes mellitus Venous (peripheral) insufficiency Vitamin D deficiency, unspecified Family History Family History Grandparent Family history of cardiovascular disease Diabetes mellitus Carcinoma of colon Hypertension Mother Family history of allergic disorder Family history of elevated blood lipids Depression Hypertension Cerebrovascular accident Cirrhosis Father Family history of glaucoma Cerebrovascular accident Sibling Family history of elevated blood lipids Social History Social History Smoking status: Former smoker Tobacco type: cigarettes Alcohol intake: never Substance use: never Do You Feel Safe in your Home?: Yes Lack of Transportation: YES Lack of Food: Never True Current Housing: I Have Housing Concerned About Future Housing: No Difficulty Paying Gas/Electric Bills: No Difficulty Paying for Meds: No Currently Unemployed: No Education: Don't Know Difficulty w/ Childcare or Family Care: No Spiritual care concerns: No Meds Home Medications and Allergies Home Medications ?Medication ?Instructions ?Recorded ?Confirmed ?Type multivitamin-ferrous 1 tablet PO DAILY 12/25/22 06/08/24 History fumarate-folic acid 18 mg-400 mcg tablet (Centrum Women) soy isoflavone-black cohosh 1 cap PO DAILY 12/25/22 06/08/24 History root-magnolia bark 155 mg capsule (Estroven) levothyroxine 175 mcg tablet 175 mcg PO DAILY #90 tabs 07/22/23 06/08/24 Rx bisacodyl 5 mg tablet,delayed 5 mg PO QAM #30 tabs 02/29/24 06/08/24 Rx release (Laxative (bisacodyl)) dextrose 40 % oral gel (Glutose-15) 15 g PO PRN PRN Hypoglycemia 02/29/24 06/08/24 Rx #112.5 grams hydrocodone 5 mg-acetaminophen 325 1 tablet PO Q4H PRN Pain Rated 4-6 02/29/24 06/08/24 Rx mg tablet #20 tabs insulin aspart U-100 100 unit/mL 1 - 2 unit subcut HS #10 mL 02/29/24 06/08/24 Rx subcutaneous solution (Novolog U-100 Insulin aspart) insulin aspart U-100 100 unit/mL 2 - 5 unit subcut TIDWM #10 mL 02/29/24 06/08/24 Rx subcutaneous solution (Novolog U-100 Insulin aspart) tolnaftate 1 % topical powder 1 applic topical Q12HR #30 grams 02/29/24 06/08/24 Rx cyanocobalamin (vitamin B-12) 1,000 mcg WEEKLY 03/22/24 06/08/24 History 1,000 mcg/mL injection syringe erythromycin 5 mg/gram (0.5 %) eye 1 applic RIGHT EYE Q4HWA #26 grams 03/25/24 06/08/24 Rx ointment meclizine 25 mg tablet 25 mg PO TID PRN dizziness #60 tabs 03/25/24 06/08/24 Rx prednisone 50 mg tablet 50 mg PO DAILY@0800 #6 tabs 03/25/24 06/08/24 Rx propranolol 10 mg tablet 10 mg PO Q12H #60 tabs 03/25/24 06/08/24 Rx ondansetron 4 mg disintegrating 4 mg PO Q8H PRN nausea and 02/09/25 Rx tablet vomiting #14 tabs Allergies Allergy/AdvReac Type Severity Reaction Status Date / Time ibuprofen Allergy Unknown Hives Verified 03/22/24 15:22 lisinopril Allergy Unknown azotemia Verified 02/24/24 03:42 naproxen Allergy Unknown Hives Verified 03/22/24 15:22 Sulfa (Sulfonamide Allergy Unknown Hives Verified 03/22/24 15:22 Antibiotics) tree and shrub pollen Allergy Congested Verified 03/22/24 15:23 Vital Signs Vital Signs - 24 hr 02/09/25 00:58 02/09/25 01:00 02/09/25 04:00 Temperature 98.5 F Pulse Rate 78 85 70 Respiratory Rate 15 15 Blood Pressure 152/66 H 123/67 Pulse Oximetry 98 95 Oxygen Delivery Room Air 02/09/25 04:30 02/09/25 05:00 02/09/25 05:30 Temperature Pulse Rate 68 78 107 H Respiratory Rate 16 17 16 Blood Pressure 105/55 L 123/64 131/75 Pulse Oximetry 95 95 99 Oxygen Delivery 02/09/25 07:24 02/09/25 07:25 02/09/25 10:39 Temperature Pulse Rate 84 73 Respiratory Rate 19 17 Blood Pressure 113/64 108/52 L Pulse Oximetry 97 97 99 Oxygen Delivery Room Air Exam Const: General: comfortable and no acute distress Eyes: General: appearance normal, both eyes and all related structures Neck: Neck: supple Resp: Effort & Inspection: normal respiratory effort Cardio: Rate: regular rate GI: Inspection: non-distended GI Palp: Yes Soft to palpation and No Tenderness to palpation present (GI) Other: Benign abdominal exam : General: Yes bladder normal to palpation Skin: General skin exam: normal color and no rashes or lesions noted Extrem: General: normal to inspection Psych: Mental Status: mental status grossly normal Results Labs 02/09/25 01:12 02/09/25 01:12 Labs: Abnormal lab results 02/09/25 Range/Units 01:12 MCHC 31.7 L (32-36) g/dl Immature Gran % (Auto) 0.7 H (0-0.5) % Neut % (Auto) 83.0 H (45.5-73.1) % Lymph % (Auto) 9.5 L (18.3-44.2) % Abs Immat Gran (auto) 0.07 H (0.00-0.031) K/mm3 Absolute Neuts (auto) 8.1 H (1.3-6.7) K/mm3 APTT 38.9 H (22.3-36.8) Seconds Sodium 135 L (137-145) mmol/L Creatinine 0.40 L (0.7-1.0) mg/dL Glucose 177 H (65-110) mg/dL AST 339 H (14-36) U/L ALT 103 H (6-35) U/L Alkaline Phosphatase 131 H (38-126) U/L Diabetes panel 02/09/25 Range/Units 01:12 Sodium 135 L (137-145) mmol/L Potassium 4.0 (3.4-5.0) mmol/L Chloride 98 (98-107) mmol/L Carbon Dioxide 29 (22-30) mmol/L BUN 8 D (7-17) mg/dL Creatinine 0.40 L (0.7-1.0) mg/dL Glucose 177 H (65-110) mg/dL Calcium 9.2 (8.4-10.2) mg/dL AST 339 H (14-36) U/L ALT 103 H (6-35) U/L Alkaline Phosphatase 131 H (38-126) U/L Total Protein 8.0 (6.3-8.2) g/dL Albumin 3.7 (3.5-5.1) g/dL Calcium panel 02/09/25 Range/Units 01:12 Calcium 9.2 (8.4-10.2) mg/dL Albumin 3.7 (3.5-5.1) g/dL Pituitary panel 02/09/25 Range/Units 01:12 Sodium 135 L (137-145) mmol/L Potassium 4.0 (3.4-5.0) mmol/L Chloride 98 (98-107) mmol/L Carbon Dioxide 29 (22-30) mmol/L BUN 8 D (7-17) mg/dL Creatinine 0.40 L (0.7-1.0) mg/dL Glucose 177 H (65-110) mg/dL Calcium 9.2 (8.4-10.2) mg/dL Adrenal panel 02/09/25 Range/Units 01:12 Sodium 135 L (137-145) mmol/L Potassium 4.0 (3.4-5.0) mmol/L Chloride 98 (98-107) mmol/L Carbon Dioxide 29 (22-30) mmol/L BUN 8 D (7-17) mg/dL Creatinine 0.40 L (0.7-1.0) mg/dL Glucose 177 H (65-110) mg/dL Calcium 9.2 (8.4-10.2) mg/dL Total Bilirubin 0.8 (0.2-1.3) mg/dL AST 339 H (14-36) U/L ALT 103 H (6-35) U/L Alkaline Phosphatase 131 H (38-126) U/L Total Protein 8.0 (6.3-8.2) g/dL Albumin 3.7 (3.5-5.1) g/dL All other labs normal.
== END 2025-02-09 10:41 ==
PROVIDERS: Student in an Organized Health Care Education/Training Program; Emergency Provider Emergency Medicine
DX: K80.20 Calculus of gallbladder without cholecystitis without obstruction (principal); E03.9 Hypothyroidism, unspecified; N18.30 Chronic kidney disease, stage 3 unspecified; I12.9 Hypertensive chronic kidney disease with stage 1 through stage 4 chronic kidney disease, or unspecified chronic kidney disease; E11.9 Type 2 diabetes mellitus without complications; E55.9 Vitamin D deficiency, unspecified; Z87.891 Personal history of nicotine dependence
CPT/HCPCS: 36415; 71046; 76705; 80053; 83690; 84484; 85025; 85610; 85730; 93005; 99284; A9270